=== PATIENT | female | born 1930 | race Caucasian/White ===

== ENCOUNTER 2018-01-19 10:18 | Emergency (ER) | payer MEDICARE ==
[2018-01-19 11:45] LABS: #Basophils 0.1 thou/uL (0.0-0.2); #Eosinphils 0.3 thou/uL (0.0-0.7); #Monocytes 0.9 thou/uL (0.11-0.59); #Neutrophils 4.8 thou/uL (1.40-6.50); %Basophils 0.9 % (0.0-1.0); %Eosinophils 3.2 % (0.0-10.0); %Lymphocytes 24.8 % (21.0-51.0); %Monocytes 11.3 % (0.0-10.0); %Neutrophils 59.8 % (42.0-75.0); Hemoglobin 9.1 g/dL (12.0-16.0); Mean Corpuscular HGB CONC 33.5 g/dL (32.0-36.0); Mean Corpuscular Hemoglobin 32.6 pg (27.0-31.0); Mean Corpuscular Volume 97.4 fl (81.0-99.0); Mean Platelet Volume 9.1 fL (7.4-10.4); Platelet Count 199 thou/uL (130-400); RBC Distribution Width 13.7 % (11.5-14.5); White Blood Cell (WBC) Count 8.1 thou/uL (4.8-10.8)
--- NOTE | 2018-01-19 11:48 | CT ---
CT BRAIN NONCONTRAST: DATE: 01-19-18 TIME: 10:52 a.m. HISTORY: 87-year-old female status post head trauma. COMPARISON: 03-28-17 FINDINGS: No acute calvarial fracture. No acute intraaxial or extraaxial hemorrhage. No mass effect or midline shift. Moderate dilation of lateral, third, and fourth ventricles, probably on a an ex vacuo basis du e to diffuse central parenchymal volume loss. Diffuse severe chronic ischemic white matter changes of the cerebrum. Moderate sized old right occipital infarction. Small old lacunar infarctions of left b esau ganglia, left caudate nucleus, and posterior limb of left internal capsule. No interval change o f the intracranial contents since the previous CT. There is a small old lacunar infarction in the lef t letitia. IMPRESSION: 1. No acute intracranial findings. 2. Severe chronic ischemic white matter changes and advanced brain atrophy. 3. Old moderate sized right occipital infarction in the right posterior cerebral artery territory. 4. Several small old lacunar infarctions, including left letitia and left corpus striatum. RUSS Sousa POS: [facility]
--- NOTE | 2018-01-19 11:52 | CT ---
CT CERVICAL SPINE WITH CORONAL AND SAGITTAL REFORMATIONS: HISTORY: Fall. Neck pain. Stiffness. COMPARISON: 03/28/2017 FINDINGS: Degenerative changes in the cervical spine are again seen with degenerative anterolisthesis of C4 on C5. No evidence of acute fracture or traumatic subluxation is seen. POS: [facility]
[2018-01-19 12:02] LABS: Anion Gap 12 mmol/L (10-20); BUN (Urea Nitrogen) 37 mg/dL (9.8-20.1); Calc. Creatinine Clearance 0 mL/min (70-130); Calcium 8.6 mg/dL (7.8-10.44); Carbon Dioxide 22 mmol/L (23-31); Chloride 104 mmol/L (98-107); Estimated GFR-MDRD 27; Glucose 101 mg/dL (83-110); Potassium 4.6 mmol/L (3.5-5.1); Sodium 133 mmol/L (136-145)
[2018-01-19 12:14] LABS: Troponin I 0.014 ng/mL (< 0.028)
[2018-01-19 13:58] LABS: Bilirubin Negative (Negative); Blood, Urine Negative (Negative); Clarity CLEAR (Clear); Glucose, Urine (Dipstick) Negative (Negative); Leukocyte Negative (Negative); Nitrite Negative (Negative); Protein, Urine (Dipstick) 300 mg/dL (Neg-Trace); Specific Gravity, Urine 1.009 (1.002-1.036); Urobilinogen 0.2 mg/dL (0.2-1.0); pH, Urine 7.5 (5.0-9.0)
[2018-01-19 14:01] LABS: Bacteria/HPF None Seen HPF (None Seen); Hyaline Casts/LPF 0-3 HYALINE CAST LPF (0-3 Hyaline); Pathc Cast-AUWi Flag 0.29 (0-2.49); Squamous Epithelial 0-3 HPF (0-3); WBC/HPF 0-3 HPF (0-3)
== END 2018-01-19 15:41 | disposition home or self-care (01) ==
LOC: ERS 10:18
DX: S00.03XA Contusion of scalp, initial encounter (principal); I10 Essential (primary) hypertension; E03.9 Hypothyroidism, unspecified; F32.9 Major depressive disorder, single episode, unspecified; Z87.891 Personal history of nicotine dependence; W01.198A Fall on same level from slipping, tripping and stumbling with subsequent striking against other object, initial encounter; Y93.01 Activity, walking, marching and hiking
CPT/HCPCS: 36415; 70450; 72125; 80048; 81003; 81015; 82553; 84484; 85025; 87086; 93005

== ENCOUNTER 2018-09-18 09:57 | Inpatient (IN) | payer MEDICARE, OTHER ==
[2018-09-18] MEDS ORDERED: Diltiazem 125 MG/25 ML ONE (10:16)
[2018-09-18] MEDS ORDERED: Metoprolol Tartrate 5 MG/5 ML VIAL ONE (11:03)
[2018-09-18 11:09] LABS: Hemoglobin 6.2 g/dL (12.0-16.0); Mean Corpuscular HGB CONC 30.6 g/dL (32.0-36.0); Mean Corpuscular Volume 98.1 fL (78.0-98.0); Mean Platelet Volume 8.5 fL (7.4-10.4); Platelet Count 370 thou/uL (130-400); RBC Distribution Width 16.2 % (11.5-14.5); Red Blood Cell (RBC) Count 2.06 mill/uL (4.20-5.40)
[2018-09-18 11:10] LABS: Bilirubin Negative (Negative); Blood, Urine Small (Negative); Glucose, Urine (Dipstick) Negative (Negative); Leukocyte Negative (Negative); Nitrite Negative (Negative); Protein, Urine (Dipstick) 100 mg/dL (Neg-Trace); Urobilinogen 0.2 mg/dL (0.2-1.0); pH, Urine 5.5 (5.0-9.0)
[2018-09-18 11:12] LABS: Clarity Hazy (Clear)
[2018-09-18 11:13] LABS: Specific Gravity, Urine 1.015 (1.002-1.036)
[2018-09-18] MEDS ORDERED: Diltiazem HCl 125 MG, Admixture Fee 1 EACH in Sodium Chloride 0.9% 100 ML IVPB SCH (11:15)
[2018-09-18 11:19] LABS: ALT (SGPT) 81 U/L (8-55); AST (SGOT) 91 U/L (5-34); Albumin 3.1 g/dL (3.4-4.8); Alkaline Phosphatase 134 U/L (40-150); Anion Gap 17 mmol/L (10-20); BUN (Urea Nitrogen) 80 mg/dL (9.8-20.1); Bilirubin, Total 0.4 mg/dL (0.2-1.2); CK (CPK) 379 U/L (29-168); Calc. Creatinine Clearance 0 mL/min (70-130); Calcium 8.8 mg/dL (7.8-10.44); Carbon Dioxide 18 mmol/L (23-31); Chloride 123 mmol/L (98-107); Estimated GFR-MDRD 13; Globulin 3.7 g/dL (2.4-3.5); Glucose 133 mg/dL (83-110); Protein, Total 6.8 g/dL (6.0-8.3); Sodium 154 mmol/L (136-145)
[2018-09-18 11:22] LABS: Bacteria/HPF None Seen HPF (None Seen); Crystals/HPF 1+ AMORPH URATES HPF (Negative); Hyaline Casts/LPF NONE SEEN LPF (0-3 Hyaline); RBC/HPF 0-3 HPF (0-3); Squamous Epithelial 0-3 HPF (0-3); WBC/HPF 0-3 HPF (0-3)
[2018-09-18 11:40] LABS: CKMB 5.3 ng/mL (0-6.6)
[2018-09-18 11:41] LABS: Band 12 % (5-11); Hypochromia SLIGHT = 6-15 cells (100X) (0-5/hpf); Lymphocytes 5 % (21-51); MDiff Complete? YES; Metamyelocyte 3 % (0-0); Microcytosis SLIGHT = 6-15 cells (100X) (0-5/hpf); Monocytes 7 % (0-10); Myelocyte 3 % (0-0); Neutrophil 70 % (42-75); Nucleated RBC 9 % (0); Platelet Morphology Comment Appears Adequate; Polychromasia MODERATE = 3-4 cells (100X) (0-2/hpf); Small Platelets SLIGHT; White Blood Cell (WBC) Count 23.6 thou/uL (4.8-10.8)
--- NOTE | 2018-09-18 12:40 | RAD ---
CHEST 1 VIEW: HISTORY: Altered mental status. COMPARISON: 10/21/2016. FINDINGS: Cardiac silhouette is magnified and upper limits of normal in size. Pulmonary vasculature is slightl y engorged with widespread reticulonodular interstitial prominence and mild patchy bibasilar infiltra maile. A small amount of right pleural fluid including the minor fissure. No evidence of pneumothorax . structural layout worker leads overlie the chest. IMPRESSION: Mild pulmonary vascular congestion and right pleural fluid. POS: [facility]
[2018-09-18 13:33] LABS: Reticulocyte Count 6.9 % (0.5-1.5)
[2018-09-18] MEDS ORDERED: Ondansetron ODT 4 MG TAB SL PRN (17:22)
[2018-09-18] MEDS ORDERED: Ondansetron PF 4 MG/2 ML Vial IVP PRN ×2 (17:22→17:50)
[2018-09-18] MEDS ORDERED: Acetaminophen 325 MG TAB PO PRN (17:22)
[2018-09-18] MEDS ORDERED: Sodium Chloride 0.9% 1,000 ML IV SCH (17:50)
[2018-09-18] MEDS ORDERED: Ondansetron ODT 4 MG TAB PO PRN (17:50)
[2018-09-18] MEDS ORDERED: hydrALAZINE 20 MG/ML VIAL SLOW IVP PRN (17:50)
[2018-09-18] MEDS: Diltiazem 125 MG in Sodium Chloride 0.9% 100 ML IVPB SCH (20:58)
[2018-09-18] MEDS: Metoprolol Tartrate 50 MG TAB PO SCH (20:58)
[2018-09-18] MEDS: Pantoprazole 40 MG VIAL IVP SCH (20:59)
--- NOTE | 2018-09-18 21:02 | HP ---
PRIMARY CARE PROVIDER: Dr. Jimenez Espino. CHIEF COMPLAINT: General weakness and lethargy. HISTORY OF PRESENT ILLNESS: This is an 88-year-old female, who presents to [facility] Emergency Department and transferred from [facility] after apparently being noted lethargic and unresponsive by [facility] staff. The patient apparently was found in her wheelchair minimally responsive to the nursing staff, however, had been noted generally weak over the last 5 to 7 days. The history was obtained after discussions with the emergency room attending physician as well as review of electronic medical records and discussions with the patient's medical power of business consultant and family members. The patient has been a current resident of [facility] over the last 6 months after previously residing at [facility]. The patient needed more supervised medical care due to worsening Alzheimer's dementia and decreased mobility. The patient apparently does not walk and uses a wheelchair for mobilization and needs 100% assistance. The patient was transferred to the emergency room, undergoing initial evaluation in the emergency room with screening metabolic survey showing evidence of hypernatremia and acute kidney acute kidney injury, elevated troponin I, and severe anemia with a hemoglobin of 6.2. The patient was typed and crossed for 2 units of packed red blood cells and given IV fluids. The patient was also noted in atrial fibrillation with rapid ventricular response with heart rates in the 130s. The patient was treated initially with diltiazem and atenolol IV push with minimal response. The patient with a known history of chronic atrial fibrillation with variable rate control on chronic metoprolol and diltiazem. The patient was continued on diltiazem infusion and transferred to the Intermediate Care Unit for further evaluation. PAST MEDICAL HISTORY: 1. Chronic atrial fibrillation with variable rate. No anticoagulation. 2. Alzheimer's dementia, advanced. 3. Severe deconditioning. 4. Diastolic congestive heart failure. 5. Hypothyroidism. 6. Hypertension. 7. Depression. 8. Osteoarthritis. 9. History of CVA. 10. Chronic kidney disease stage 3. 11. History of thrombocythemia. 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 CURRENT MEDICATIONS: 1. Xanax 0.5 mg p.o. t.i.d. p.r.n. 2. Agrylin 0.5 mg p.o. daily. 3. Enteric-coated aspirin 81 mg p.o. daily. 4. Levothyroxine 112 mcg p.o. daily. 5. Metoprolol tartrate 50 mg p.o. b.i.d. 6. Cardizem CD 240 mg p.o. daily. 7. Lasix 40 mg p.o. b.i.d. 8. Protonix 40 mg p.o. daily. ALLERGIES: NO KNOWN DRUG ALLERGIES. FAMILY HISTORY: No inheritable disease per family report. SOCIAL HISTORY: The patient is and resides at [facility] x6 months. No current alcohol, tobacco, or illicit drug use. Formally worked as a nurse. REVIEW OF SYSTEMS: Unobtainable due to patient's advanced dementia. PHYSICAL EXAMINATION: VITAL SIGNS: Currently, blood pressure 136/93, pulse 108, respiratory rate 16, temperature 97.8 degrees Fahrenheit, O2 saturation 96% on room air. GENERAL APPEARANCE: This is an 88-year-old female. Alert and responds to name with 1- to 2-word responses, in no acute distress. HEENT: Pupils are equal, round, reactive to light and accommodation. Extraocular muscles are intact. No scleral icterus. No conjunctival injection. Conjunctiva are pale. Nares patent. OP is clear. Oral mucosa dry appearing. NECK: Supple. No cervical adenopathy. No thyromegaly. No carotid bruits. No JVD appreciated. Cervical spine with full active and passive range of motion. No meningeal signs appreciated. CHEST: Lungs are clear to auscultation bilaterally. CARDIOVASCULAR: S1 and S2 with tachycardia. Irregular rate and rhythm noted. ABDOMEN: Rounded, soft, nontender, and nondistended. Bowel sounds are positive in all 4 quadrants. There is no hepatosplenomegaly. No abdominal bruits. No rebound or guarding appreciated. RECTAL: From ER physician report showed normal tone with dark stool in the vault. Guaiac negative x1. EXTREMITIES: Warm and dry with fair turgor. No clubbing, cyanosis, or asymmetric edema appreciated. Pulses palpable distally at the dorsalis pedis, posterior tibial, and popliteal arteries bilaterally. Capillary refill less than 2 seconds. NEUROLOGIC: Cranial nerves 2 through 12 are grossly intact. The patient minimally verbal, responds to name with one-word response, frail, not observed ambulatory during this exam. Minimally moves extremities. PERTINENT LAB AND X-RAY FINDINGS: Sodium 154, potassium 4.0, chloride 123, CO2 of 18, BUN 80, creatinine 3.33, estimated GFR 13, glucose 133. Lactic acid level 1.2, calcium 8.8, AST 91, ALT of 81, alkaline phosphatase 134, total CK 379, troponin I range between 0.061, 0.066. BNP 1374; previously noted 144, 10/21/2016. CBC showed a white blood cell count of 23.6, hemoglobin 6.2, hematocrit 20, MCV 98, platelet count 370 with 70% neutrophils, 12% bands. Reticulocyte count 6.9. Urinalysis negative. Stool Hemoccult negative x1; 09/18/2018. Portable chest x-ray dated 09/18/2018 showed mild pulmonary vascular prominence. EKG dated 09/18/2018 by my interpretation shows atrial fibrillation with rapid ventricular rate in the 120s. Normal R-wave progression noted in the precordial leads. Normal axis. No acute ST-T wave changes noted. ASSESSMENT AND PLAN: 1. Atrial fibrillation with rapid ventricular response. We will admit to the Intermediate Care Unit. We will continue Cardizem infusion at 10 mg/hour. Repeat Cardizem bolus 10 mg IV x1. Consider additional digoxin if rate is not controlled. Resume metoprolol 50 mg b.i.d. Continue IV fluids with normal saline at 75 mL/hr. 2. Gastrointestinal bleed. Suspected upper source given melena. We will continue Protonix 40 mg IV q.12 hours. Continued transfusion of 2nd unit of packed red blood cells. Serial H and H monitoring. Avoid anticoagulation and aspirin. Consult GI Service for further evaluation and recommendations. 3. Acute blood loss anemia. Type and cross for 2 units of packed red blood cells. Serial H and H monitoring as stated previously. Repeat CBC in the a.m. 4. Acute kidney injury. Suspect multifactorial given volume depletion and dehydration. We will continue IV fluids with normal saline at 75 mL/hr. Avoid nephrotoxic agents and limit contrast exposure. 5. Hypernatremia. Suspect acute in conjunction with dehydration. Continue IV fluids as stated previously and repeat sodium level in the a.m. 6. Severe deconditioning. We will obtain PT evaluation for general functional assessment. General fall risk. 7. Alzheimer's dementia, advanced. We will continue general supportive management. Family to monitor the patient one-on-one. 8. Prophylaxis. SCDs while in bed. Protonix 40 mg IV q.12 hours. 9. Code status. Do not attempt resuscitation. Confirmed with family and son, who is medical power of business consultant. Job ID: [id number]
[2018-09-18 23:10] LABS: Hemoglobin 10.1 g/dL (12.0-16.0)
[2018-09-19 05:01] LABS: Band 27 % (5-11); Hemoglobin 9.5 g/dL (12.0-16.0); Lymphocytes 8 % (21-51); MDiff Complete? YES; Mean Corpuscular HGB CONC 32.4 g/dL (32.0-36.0); Mean Corpuscular Hemoglobin 31.9 pg (27.0-31.0); Mean Corpuscular Volume 98.4 fL (78.0-98.0); Mean Platelet Volume 8.8 fL (7.4-10.4); Metamyelocyte 9 % (0-0); Monocytes 4 % (0-10); Neutrophil 51 % (42-75); Nucleated RBC 11 % (0); Platelet Count 299 thou/uL (130-400); Platelet Morphology Comment Appears Adequate; Polychromasia SLIGHT = 2-3 cells (100X) (0-2/hpf); RBC Distribution Width 16.3 % (11.5-14.5); Reactive Lymphocytes 1 % (0-10); Red Blood Cell (RBC) Count 2.99 mill/uL (4.20-5.40); White Blood Cell (WBC) Count 21.5 thou/uL (4.8-10.8)
[2018-09-19 05:15] LABS: Anion Gap 17 mmol/L (10-20); BUN (Urea Nitrogen) 79 mg/dL (9.8-20.1); Calc. Creatinine Clearance 12 mL/min (70-130); Calcium 8.8 mg/dL (7.8-10.44); Carbon Dioxide 15 mmol/L (23-31); Estimated GFR-MDRD 14; Glucose 107 mg/dL (83-110); Iron 35 ug/dL (50-170); Iron Binding Capacity, Total 278 mcg/dL (265-497); Potassium 4.2 mmol/L (3.5-5.1); Sodium 155 mmol/L (136-145)
[2018-09-19 05:28] LABS: Chloride 127 mmol/L (98-107)
[2018-09-19 05:32] LABS: Ferritin 54.04 ng/mL (10-291); Thyroid Stimulating Hormone 7.4863 uIU/mL (0.35-4.94)
[2018-09-19] MEDS ORDERED: Lactated Ringer's 1,000 ML IV SCH (06:00)
[2018-09-19] MEDS ORDERED: Sodium Chloride 0.9% 1,000 ML IV SCH (06:00)
[2018-09-19] MEDS: Pantoprazole 40 MG VIAL IVP SCH ×2 (10:09→21:27)
[2018-09-19] MEDS: Levothyroxine Sodium 112 MCG TAB PO SCH (10:10)
[2018-09-19] MEDS: Metoprolol Tartrate 50 MG TAB PO SCH ×2 (10:10→20:32)
--- NOTE | 2018-09-19 12:12 | CON ---
DATE OF CONSULTATION: 09/19/2018 REASON FOR CONSULTATION: Atrial fibrillation with RVR. PRIMARY PRIVATE TUTORS AND TEACHERS: Saumya Rangel MD HISTORY OF PRESENT ILLNESS: Ms. Quigley is an 88-year-old white female, who comes to the hospital for altered mentation. She was found to have a hemoglobin of 6.2 and given packed red blood cells up to the 9s now. She has a history of melena as well. Concern for upper GI bleed. During her initial evaluation, she was found to be in atrial fibrillation with RVR, heart rate in the 130s. She was started on diltiazem drip. Heart rate down to the low 100s upper 90s. She remains confused. She is lying on her bed, unable to wake her up easily, however, really cannot answer most of my questions. PAST MEDICAL HISTORY: 1. Paroxysmal atrial fibrillation. 2. Alzheimer dementia, advanced. 3. Severe deconditioning. 4. Diastolic heart failure. 5. Hypothyroidism. 6. Hypertension. 7. Depression. 8. Osteoarthritis. 9. CVA in the past. 10. Chronic kidney disease, stage 3. 11. Thrombocytopenia. PAST SURGICAL HISTORY: Sigmoid colectomy secondary to fecal mass. OUTPATIENT MEDICATIONS: Include: 1. Xanax p.r.n. 2. Agrylin 0.5 a day. 3. Aspirin 81 a day. 4. Levothyroxine 112 mcg a day. 5. Metoprolol tartrate 50 mg b.i.d. 6. Cardizem CD 240 mg a day. 7. Lasix 40 mg b.i.d. 8. Protonix 40 mg a day. ALLERGIES: NO KNOWN DRUG ALLERGIES. FAMILY HISTORY: No early coronary artery disease. SOCIAL HISTORY: Resides at [facility] for the last 6 months. No alcohol, tobacco, or drugs. Former nurse. REVIEW OF SYSTEMS: Unobtainable as the patient has advanced dementia and cannot give me any information. PHYSICAL EXAMINATION: VITAL SIGNS: Temperature 98.6, pulse 105, respiratory rate 22, saturating 96% on 3 L nasal cannula, and blood pressure 147/99. GENERAL: Sleeping, but easily arousable. Alert to person only. HEENT: Normocephalic and atraumatic. NECK: Supple. LUNGS: Clear. CARDIOVASCULAR: S1 and S2. No S3 or S4. No murmurs. ABDOMEN: Soft. Positive bowel sounds. EXTREMITIES: No edema. SKIN: Warm and dry. LABORATORY DATA: Laboratory work was reviewed. CBC on admission, hemoglobin was 10.1, down to 6.2, just a few hours later up to 9.5 after 2 units of blood given overnight. White count was 23.6. Chemistry was reviewed. Creatinine is 3.2 with BUN of 79, GFR 14, TSH is high at 7.4, albumin of 3.1. BNP was 1373 and troponin is in the indeterminate range. UA was unremarkable. ASSESSMENT AND PLAN: 1. Atrial fibrillation with rapid ventricular response: She has paroxysmal atrial fibrillation, currently in the with rapid ventricular response, likely related to severe anemia. I agree with continued Cardizem drip if her blood pressure starts to begin to be an issue. We will have to stop the Cardizem drip and let her tachycardia run as she may need this tachycardia given her anemia. 2. Anemia: May be GI losses. Per primary team. 3. No anticoagulation contraindicated at this time. Given her acute anemia, which is from an unknown source. 4. We will follow. Job ID: [id number]
--- NOTE | 2018-09-19 15:00 | CON ---
DATE OF CONSULTATION: 09/19/2018 The following encompassed 50 minutes of time of that, greater than 50% was spent with the patient and/or in the patient's unit in the hospital. HISTORY OF THE PRESENT ILLNESS: This is a routine [facility] consultation for critical care. The patient is an 88-year-old female who presented last night with weakness and lethargy. She was found to be severely anemic. This is presumed secondary to gastrointestinal loss. She is a very poor historian and cannot give me much in the way history at this time; therefore, what I have is obtained from speaking with nursing staff and from reviewing records in the chart. PAST MEDICAL HISTORY: 1. Chronic atrial fibrillation. 2. Alzheimer disease. 3. Deconditioning. 4. Diastolic congestive heart failure. 5. Hypothyroidism. 6. Hypertension. 7. Depression. 8. Osteoarthritis. 9. Stroke. 10. Chronic kidney disease stage 3. 11. Thrombocytopenia. PAST SURGICAL HISTORY: Cecal mass consistent with tubulovillous adenoma. MEDICATIONS: Prior to admission; 1. Xanax. 2. Agrylin. 3. Aspirin. 4. Levothyroxine. 5. Metoprolol. 6. Cardizem. 7. Lasix. 8. Protonix. ALLERGIES: NONE. SOCIAL HISTORY: Nonsmoker, nondrinker. [facility] a [facility]. REVIEW OF SYSTEMS: Unobtainable secondary to the patient's Alzheimer disease. PHYSICAL EXAMINATION: VITAL SIGNS: Temperature 98.6, pulse 105, respirations 22, O2 saturation 96% on 3 L, and blood pressure 147/99. GENERAL: She is lying in bed peacefully and has no distress. HEENT: Unremarkable. NECK: No adenopathy or JVD. LUNGS: Clear. CARDIAC: S1, S2 regular. ABDOMEN: Soft, nontender. EXTREMITIES: No edema. LABORATORY DATA: White blood cell count 21.5, hematocrit 29.4, and platelet count 299. Sodium 155, potassium 4.2, chloride 127, CO2 of 15, BUN 79, creatinine 3.2, glucose 107. TSH 7.4. Chest x-ray demonstrates chronic interstitial changes bilaterally, particularly on the right. There appears to be a small amount of pleural fluid in the right horizontal fissure. ASSESSMENT: 1. Atrial fibrillation with rapid ventricular response. 2. Suspected gastrointestinal bleed with severe blood loss anemia. 3. Acute kidney injury. 4. Hypernatremia. 5. Severe deconditioning. PLAN: The patient is currently being treated conservatively with transfusion, IV fluids, and rate control from her atrial fibrillation. I agree with current plan and have nothing further to add to excellent care she is receiving. Job ID: [id number]
--- NOTE | 2018-09-19 15:20 | PDOC.PN ---
- Subjective Encounter Start Date: 09/19/18 Encounter Start Time: 15:05 Subjective: f/u for AMS, GI bleed, A-fib RVR s/p 2u PRBC's and rate improved -: on Cardizem gtt. - Objective Resuscitation Status - Order Detail: 09/18/18 17:42 Resuscitation Status Routine Resuscitation Status: DNAR: NO Resuscitation Discussed with: Family and son Vital Signs & Weight: Vital Signs (12 hours) Temp Pulse Resp BP Pulse Ox 09/19/18 15:00 98.0 F 117 H 19 148/87 H 95 09/19/18 10:46 98.6 F 105 H 22 H 147/99 H 96 09/19/18 08:00 98 09/19/18 07:00 98.4 F 124 H 19 172/99 H 95 09/19/18 03:45 99.0 F 115 H 18 137/110 H 93 L Weight Weight 135 lb 11.2 oz I&O: 09/18/18 09/19/18 09/20/18 06:59 06:59 06:59 Intake Total 1139.7 Balance 1139.7 Result Diagrams: 09/19/18 04:35 09/19/18 04:35 Additional Labs: Microbiology 09/19/18 08:50 Stool Stool Occult Blood (TJ) - Final 09/18/18 11:20 Stool - Pending Stool Occult Blood (TJ) - Final 09/18/18 12:30 Venous blood - Right Hand Blood Culture - Preliminary Specimen has been received and culture in progress. No Growth to date. 09/18/18 12:30 Central Line - Left external jugular vein Blood Culture - Preliminary Specimen has been received and culture in progress. No Growth to date. Laboratory Tests 09/18/18 09/18/18 09/18/18 12:14 23:02 Unknown WBC Hgb 10.1 L Band Neuts % (Manual) Retic Count 6.9 H Sodium 154 H Chloride 123 H BUN 80 H Creatinine 3.33 H Lactic Acid Iron TIBC Ferritin TSH 3rd Generation 09/18/18 09/18/18 09/19/18 Unknown Unknown 04:35 WBC 23.6 H Hgb 6.2 L Band Neuts % (Manual) 12 H Retic Count Sodium Chloride BUN Creatinine Lactic Acid 1.2 Iron 35 L TIBC 278 Ferritin TSH 3rd Generation 09/19/18 09/19/18 04:35 04:35 WBC Hgb Band Neuts % (Manual) 27 H Retic Count Sodium Chloride BUN Creatinine Lactic Acid Iron TIBC Ferritin 54.04 TSH 3rd Generation 7.4863 H EKG Reviewed by me: Yes (Tele - A-fib in low 100's) Phys Exam - Physical Examination Constitutional: NAD responds in 1-2 word responses HEENT: PERRLA, sclera anicteric, oral pharynx no lesions Neck: no nodes, no JVD, supple, full ROM diminished in bases Respiratory: no wheezing, no rales, no rhonchi S1, S2 Cardiovascular: no significant murmur, no rub, irregular Gastrointestinal: soft, non-tender, no distention, positive bowel sounds Musculoskeletal: no edema, pulses present Neurological: normal sensation, moves all 4 limbs Skin: normal turgor, cap refill <2 seconds Dx/Plan (1) Atrial fibrillation with RVR Code(s): I48.91 - UNSPECIFIED ATRIAL FIBRILLATION Status: Acute Comment: Continue rate-control strategy, titrate Cardizem to clinical response, no anticoagulation due to GI bleed (2) GI bleed Code(s): K92.2 - GASTROINTESTINAL HEMORRHAGE, UNSPECIFIED Status: Suspected Comment: Suspected GI source, s/p 2u PRBC's, serial H/H monitoring, GI consult (3) Acute blood loss anemia Code(s): D62 - ACUTE POSTHEMORRHAGIC ANEMIA Status: Acute Comment: See above , serial CBC (4) RONEL (acute kidney injury) Code(s): N17.9 - ACUTE KIDNEY FAILURE, UNSPECIFIED Status: Acute Comment: Avoid nephrotoxic meds and limit contrast exposure, serial creatinine (5) Acute hypernatremia Code(s): E87.0 - HYPEROSMOLALITY AND HYPERNATREMIA Status: Acute Comment: slow improvement, change IVF's D5 1/2 NS @ 75ml/h, serial Na+ (6) Physical deconditioning Code(s): R53.81 - OTHER MALAISE Status: Chronic Comment: PT for mobilization (7) Alzheimer's dementia Code(s): G30.9 - ALZHEIMER'S DISEASE, UNSPECIFIED; F02.80 - DEMENTIA IN OTH DISEASES CLASSD ELSWHR W/O BEHAVRL DISTURB Status: Chronic Comment: Advanced dementia, will return to [facility] upon d/c (8) Neutrophilic leukocytosis Code(s): D72.9 - DISORDER OF WHITE BLOOD CELLS, UNSPECIFIED Status: Acute Comment: Etiology unclear, suspect stress demargination however will monitor for infectious etiology, no current infectious etiology identified, hold abx - Plan PT/OT, social media marketing manager, DVT proph w/SCDs Continue supportive mgmt -: Continue Cardizem gtt -: Change IVF D5 1/2 NS@ 75ml/h -: GI consult pending -: AM lab: CMP, CBC, FT4 * .
[2018-09-19] MEDS: ALPRAZolam 0.5 MG TAB PO PRN (20:37)
--- NOTE | 2018-09-19 21:03 | CON ---
DATE OF CONSULTATION: 09/19/2018 TYPE OF CONSULTATION: Gastroenterology. CHIEF COMPLAINT: Weakness and lethargy. HISTORY OF PRESENT ILLNESS: Ms. Quigley is an 88-year-old woman, who was transferred from the assisted due to weakness. She was found to be minimally responsive and has had progressively worsening Alzheimer's dementia over the last year. She has had no nausea or vomiting reported. No diarrhea, constipation, or blood in the stools known. She has a history of atrial fibrillation and was in rapid ventricular response when she presented; however, her heart rate is being controlled with diltiazem and atenolol. Currently, she is oriented to her name and she denies any abdominal pain. GI was consulted due to acute on chronic anemia with concern for possible GI blood loss. PAST MEDICAL HISTORY: 1. Atrial fibrillation. 2. Alzheimer's dementia. 3. Diastolic heart failure. 4. Hypothyroidism. 5. Hypertension. 6. Osteoarthritis. 7. Stroke. 8. Depression. 9. Chronic kidney disease. PAST SURGICAL HISTORY: She had a sigmoid segmental colon resection for a tubulovillous adenoma. That was performed in 2011. Followup colonoscopy in [address] Dejesus was negative. FAMILY HISTORY: Negative for GI malignancy. SOCIAL HISTORY: No alcohol, tobacco, or drugs. ALLERGIES: NO KNOWN DRUG ALLERGIES. MEDICATIONS: Prior to admission; 1. Xanax. 2. Agrylin. 3. Enteric-coated aspirin. 4. Levothyroxine. 5. Metoprolol. 6. Cardizem. 7. Lasix. 8. Protonix. REVIEW OF SYSTEMS: Limited based on her dementia. She again denies pain anywhere. PHYSICAL EXAMINATION: VITAL SIGNS: Pulse 117, temperature 98.0, blood pressure 148/87. GENERAL: She is in no acute distress. She is oriented to her name. She is awake and alert. LUNGS: Clear to auscultation bilaterally. HEART: Tachycardic, S1 and S2. ABDOMEN: Soft, nontender, and nondistended. Bowel sounds are present. EXTREMITIES: No lower extremity edema. LABORATORY DATA: Sodium 155, potassium 4.2, chloride 127, CO2 15, BUN 79, creatinine 3.2. Iron 35, TIBC 278, ferritin 54. BNP 1373. Albumin 3.1. IMPRESSION: 1. Severe anemia, requiring transfusion. She has received 2 units yesterday. Her hemoglobin improved from 6.2 to 9.5 after transfusion. She has no overt bleeding known. She has 2 hemoccult stools that were negative. Her anemia is, I suspect, more consistent with chronic kidney disease or chronic disease given the low TIBC and her creatinine is up to 3.2 with BUN of 79. 2. Alzheimer's dementia. 3. Diastolic congestive heart failure with elevated BNP. RECOMMENDATIONS: 1. We will follow trend of her hemoglobin after transfusion. If she shows signs of overt bleeding or if ultimately another source could not be identified for the anemia, then endoscopy can be performed. We will monitor her clinically for now. 2. She has been on proton pump inhibitor and this can be continued. Job ID: [id number]
[2018-09-19] MEDS: Dextrose 5 %-0.45 % NaCl 1,000 ML IV SCH (21:27)
[2018-09-19] MEDS: Diltiazem 125 MG in Sodium Chloride 0.9% 100 ML IVPB SCH (21:27)
[2018-09-20 06:10] LABS: Band 1 % (5-11); Hypochromia SLIGHT = 6-15 cells (100X) (0-5/hpf); Lymphocytes 3 % (21-51); MDiff Complete? YES; Mean Corpuscular HGB CONC 32.1 g/dL (32.0-36.0); Mean Corpuscular Hemoglobin 30.9 pg (27.0-31.0); Mean Platelet Volume 9.2 fL (7.4-10.4); Monocytes 1 % (0-10); Neutrophil 95 % (42-75); Nucleated RBC 4 % (0); Platelet Count 268 thou/uL (130-400); Platelet Morphology Comment Appears Adequate; Red Blood Cell (RBC) Count 2.92 mill/uL (4.20-5.40); White Blood Cell (WBC) Count 14.7 thou/uL (4.8-10.8)
[2018-09-20 06:15] LABS: ALT (SGPT) 119 U/L (8-55); AST (SGOT) 124 U/L (5-34); Alkaline Phosphatase 157 U/L (40-150); Anion Gap 14 mmol/L (10-20); BUN (Urea Nitrogen) 71 mg/dL (9.8-20.1); Bilirubin, Total 0.6 mg/dL (0.2-1.2); Calc. Creatinine Clearance 13 mL/min (70-130); Calcium 8.7 mg/dL (7.8-10.44); Carbon Dioxide 18 mmol/L (23-31); Estimated GFR-MDRD 15; Globulin 3.5 g/dL (2.4-3.5); Glucose 141 mg/dL (83-110); Potassium 3.7 mmol/L (3.5-5.1); Protein, Total 6.5 g/dL (6.0-8.3); Sodium 156 mmol/L (136-145)
[2018-09-20 06:20] LABS: Chloride 128 mmol/L (98-107)
[2018-09-20] MEDS: Levothyroxine Sodium 112 MCG TAB PO SCH (07:30)
[2018-09-20] MEDS: Dextrose 5 %-0.45 % NaCl 1,000 ML IV SCH (08:51)
[2018-09-20] MEDS: Pantoprazole 40 MG VIAL IVP SCH (08:52)
[2018-09-20] MEDS: Metoprolol Tartrate 50 MG TAB PO SCH ×2 (08:52→20:24)
[2018-09-20] MEDS: Diltiazem 125 MG in Sodium Chloride 0.9% 100 ML IVPB SCH (11:00)
--- NOTE | 2018-09-20 11:22 | PRG ---
DATE OF SERVICE: SUBJECTIVE: Ms. Quigley has no complaints. No abdominal pain. OBJECTIVE: VITAL SIGNS: Temperature 97.2, pulse 100, blood pressure 139/86, oxygen saturations 92% on room air. GENERAL: She is awake and alert. LUNGS: Clear to auscultation bilaterally. HEART: Regular rate and rhythm. ABDOMEN: Soft, nontender, nondistended. Bowel sounds are present. EXTREMITIES: No lower extremity edema. LABS: White blood cell count 14.7, hemoglobin 9.0, platelets 268. Creatinine is improved to 2.99. Bilirubin 0.6, AST 124, ALT 119, alk phos 157. IMPRESSION: 1. Anemia. Her hemoglobin improved from 6.2 to 9.0 after 2 units transfusion. She has been Hemoccult negative. Rectal exam today reveals dark carpenter stool consistent with her iron supplementation. There is no overt GI bleeding. Anemia is likely multifactorial without obvious signs of overt GI bleeding. 2. Alzheimer dementia. 3. Acute renal failure. RECOMMENDATIONS: 1. She can change to once daily pantoprazole. 2. We will follow the trend of hemoglobin. 3. We will not plan endoscopy at this point. I will sign off for now. Please call if GI can be of assistance. Job ID: [id number]
--- NOTE | 2018-09-20 11:31 | PDOC.CTH ---
Cardiology Progress Note - Subjective No new issues. - Objective Vital Signs Temp Pulse Resp BP Pulse Ox 09/20/18 10:56 97.9 F 85 16 133/90 98 09/20/18 07:45 92 L 09/20/18 07:24 97.2 F L 100 18 139/86 92 L 09/20/18 03:55 97.8 F 89 18 137/80 93 L 09/20/18 00:00 98.0 F 87 16 131/71 97 Weight 139 lb 4.8 oz 09/19/18 09/20/18 09/21/18 06:59 06:59 06:59 Intake Total 1139.7 1920 Output Total 5 Balance 1139.7 1915 - Physical Examination General/Neuro: NAD Neck: no JVD present Lungs: unlabored respirations Heart: other: (Irreg) Abdomen: NT/ND Extremities: other: (no edema) - Telemetry Telemetry Rhythm: Afib HR 80's - Labs Result Diagrams: 09/20/18 05:37 09/20/18 05:37 Troponin/CKMB CK-MB (CK-2) 5.3 ng/mL (0-6.6) 09/18/18 Unknown Troponin I 0.061 ng/mL (< 0.028) H 09/18/18 Unknown - Assessment/Plan 1. Afib now rate controlled. 2. Anemia, multifactorial 3. Dementia. 4. RONEL on CKD, improving. 5. Abnormal LFT's. 6. Hyperchloremia PLAN; - Continue to hold anticoagulation due to anemia. Probably will only be able to get aspirin for stroke prophylaxis. - Rate controlled on current meds. - Will switch diltiazem to PO.
[2018-09-20] MEDS: Dextrose 5% in Water 1,000 ML IV SCH (12:21)
--- NOTE | 2018-09-20 12:30 | PRG ---
DATE OF SERVICE: 09/20/2018 SUBJECTIVE: An 88-year-old female, who is a DNR, presented to the hospital with mental status change. She has known history of dementia. She is staying at [facility] here locally. Pathology found to have anemia and severe electrolyte imbalance. Her creatinine is 2.9, BUN is 71, sodium 128, potassium 1.5. Liver function elevated. AST is 124, ALT is 119. White count 14,000, H and H 9 and 28. She is clearly encephalopathic, unable to give any history. OBJECTIVE: VITAL SIGNS: Saturations are 90% on room air, respirations 16, temperature 98.7, blood pressure 133/90. CHEST: Decreased breath sounds without any wheezing. CARDIAC: Normal S1 and S2. No gallops. X-ray shows nonspecific bilateral atelectatic changes. IMPRESSION: 1. GI bleed. 2. Electrolyte imbalance. 3. Encephalopathy. 4. Renal failure. I agree with comfort care. Slow hydration. We will follow. Job ID: [id number]
--- NOTE | 2018-09-20 14:51 | PDOC.PN ---
- Subjective Encounter Start Date: 09/20/18 Encounter Start Time: 14:40 Subjective: f/u for GI bleed, A-fib RVR on Cardizem gtt now d/c'd due to pauses. -: Remains confused, weak. Minimal po intake. - Objective Resuscitation Status - Order Detail: 09/18/18 17:42 Resuscitation Status Routine Resuscitation Status: DNAR: NO Resuscitation Discussed with: Family and son PATRICIA Reviewed: Yes Vital Signs & Weight: Vital Signs (12 hours) Temp Pulse Resp BP Pulse Ox 09/20/18 10:56 97.9 F 85 16 133/90 98 09/20/18 07:45 92 L 09/20/18 07:24 97.2 F L 100 18 139/86 92 L 09/20/18 03:55 97.8 F 89 18 137/80 93 L Weight Weight 139 lb 4.8 oz I&O: 09/19/18 09/20/18 09/21/18 06:59 06:59 06:59 Intake Total 1139.7 1920 Output Total 5 Balance 1139.7 1915 Result Diagrams: 09/20/18 05:37 09/20/18 05:37 Additional Labs: Microbiology 09/19/18 08:50 Stool Stool Occult Blood (TJ) - Final 09/18/18 11:20 Stool - Pending Stool Occult Blood (TJ) - Final 09/18/18 12:30 Venous blood - Right Hand Blood Culture - Preliminary Specimen has been received and culture in progress. No Growth to date. 09/18/18 12:30 Central Line - Left external jugular vein Blood Culture - Preliminary Specimen has been received and culture in progress. No Growth to date. Laboratory Tests 09/18/18 09/18/18 09/18/18 12:14 23:02 Unknown WBC Hgb 10.1 L Neutrophils % (Manual) Band Neuts % (Manual) Retic Count 6.9 H Sodium 154 H Chloride 123 H BUN 80 H Creatinine 3.33 H Lactic Acid Iron TIBC Ferritin AST ALT Alkaline Phosphatase TSH 3rd Generation 09/18/18 09/18/18 09/19/18 Unknown Unknown 04:35 WBC 23.6 H Hgb 6.2 L Neutrophils % (Manual) Band Neuts % (Manual) 12 H Retic Count Sodium 155 H Chloride 127 H* BUN 79 H Creatinine 3.20 H Lactic Acid 1.2 Iron 35 L TIBC 278 Ferritin AST ALT Alkaline Phosphatase TSH 3rd Generation 09/19/18 09/19/18 09/20/18 04:35 04:35 05:37 WBC 21.5 H Hgb 9.5 L Neutrophils % (Manual) 51 Band Neuts % (Manual) 27 H Retic Count Sodium Chloride BUN Creatinine Lactic Acid Iron TIBC Ferritin 54.04 AST 124 H ALT 119 H Alkaline Phosphatase 157 H TSH 3rd Generation 7.4863 H 09/20/18 05:37 WBC Hgb Neutrophils % (Manual) 95 H Band Neuts % (Manual) 1 L Retic Count Sodium Chloride BUN Creatinine Lactic Acid Iron TIBC Ferritin AST ALT Alkaline Phosphatase TSH 3rd Generation EKG Reviewed by me: Yes (Tele - A-fib in 80's) Phys Exam - Physical Examination Constitutional: NAD opens eyes to name, mumbles HEENT: PERRLA, sclera anicteric, oral pharynx no lesions Neck: no nodes, no JVD, supple, full ROM Respiratory: no wheezing, no rales, no rhonchi, clear to auscultation bilateral S1, S2 Cardiovascular: no significant murmur, no rub, irregular Gastrointestinal: soft, non-tender, no distention, positive bowel sounds Musculoskeletal: no edema, pulses present Neurological: moves all 4 limbs A x O x 1 Skin: normal turgor, cap refill <2 seconds Dx/Plan (1) Atrial fibrillation with RVR Code(s): I48.91 - UNSPECIFIED ATRIAL FIBRILLATION Status: Acute Comment: Continue rate-control strategy, titrate Cardizem to clinical response, no anticoagulation due to GI bleed (2) GI bleed Code(s): K92.2 - GASTROINTESTINAL HEMORRHAGE, UNSPECIFIED Status: Suspected Comment: Suspected GI source, s/p 2u PRBC's, serial H/H monitoring, GI consult appreciated (3) Acute blood loss anemia Code(s): D62 - ACUTE POSTHEMORRHAGIC ANEMIA Status: Acute Comment: See above , serial CBC (4) RONEL (acute kidney injury) Code(s): N17.9 - ACUTE KIDNEY FAILURE, UNSPECIFIED Status: Acute Comment: Avoid nephrotoxic meds and limit contrast exposure, serial creatinine, slow improvement (5) Acute hypernatremia Code(s): E87.0 - HYPEROSMOLALITY AND HYPERNATREMIA Status: Acute Comment: slow improvement, change IVF's D5W @ 50ml/h, serial Na+ (6) Physical deconditioning Code(s): R53.81 - OTHER MALAISE Status: Chronic Comment: PT for mobilization (7) Alzheimer's dementia Code(s): G30.9 - ALZHEIMER'S DISEASE, UNSPECIFIED; F02.80 - DEMENTIA IN OTH DISEASES CLASSD ELSWHR W/O BEHAVRL DISTURB Status: Chronic Comment: Advanced dementia, will return to [facility] upon d/c (8) Neutrophilic leukocytosis Code(s): D72.9 - DISORDER OF WHITE BLOOD CELLS, UNSPECIFIED Status: Acute Comment: Etiology unclear, suspect stress demargination however will monitor for infectious etiology, no current infectious etiology identified, hold abx - Plan [employer] social worker, DVT proph w/SCDs Stable currently -: Continue D5W IV -: Cardizem converted to po -: Continue Metoprolol -: No anticoagulation due GI bleed/anemia/fall risk AM lab: CMP, CBC
[2018-09-21 04:38] LABS: #Eosinphils 0.2 thou/uL (0.0-0.7); #Lymphocytes 1.6 thou/uL (1.20-3.40); #Monocytes 1.1 thou/uL (0.11-0.59); #Neutrophils 7.8 thou/uL (1.40-6.50); %Basophils 0.3 % (0.0-1.0); %Eosinophils 2.1 % (0.0-10.0); %Neutrophils 72.6 % (42.0-75.0); Hemoglobin 8.6 g/dL (12.0-16.0); Mean Corpuscular HGB CONC 32.2 g/dL (32.0-36.0); Mean Corpuscular Hemoglobin 31.3 pg (27.0-31.0); Mean Corpuscular Volume 97.3 fL (78.0-98.0); Mean Platelet Volume 9.1 fL (7.4-10.4); Platelet Count 227 thou/uL (130-400); RBC Distribution Width 15.9 % (11.5-14.5); Red Blood Cell (RBC) Count 2.75 mill/uL (4.20-5.40); White Blood Cell (WBC) Count 10.8 thou/uL (4.8-10.8)
[2018-09-21 04:58] LABS: ALT (SGPT) 105 U/L (8-55); AST (SGOT) 80 U/L (5-34); Albumin 2.7 g/dL (3.4-4.8); Alkaline Phosphatase 139 U/L (40-150); Anion Gap 11 mmol/L (10-20); BUN (Urea Nitrogen) 61 mg/dL (9.8-20.1); Bilirubin, Total 0.5 mg/dL (0.2-1.2); Calc. Creatinine Clearance 15 mL/min (70-130); Calcium 8.1 mg/dL (7.8-10.44); Carbon Dioxide 20 mmol/L (23-31); Estimated GFR-MDRD 16; Globulin 3.2 g/dL (2.4-3.5); Glucose 106 mg/dL (83-110); Potassium 3.5 mmol/L (3.5-5.1); Protein, Total 5.9 g/dL (6.0-8.3); Sodium 153 mmol/L (136-145)
[2018-09-21 05:03] LABS: Chloride 126 mmol/L (98-107); Critical Call Chemistry NUR.AEB@0503
[2018-09-21] MEDS: Levothyroxine Sodium 112 MCG TAB PO SCH (06:06)
[2018-09-21] MEDS: Dextrose 5% in Water 1,000 ML IV SCH (09:08)
[2018-09-21] MEDS: Metoprolol Tartrate 50 MG TAB PO SCH ×2 (09:08→20:39)
--- NOTE | 2018-09-21 09:27 | PRG ---
DATE OF SERVICE: 09/21/2018 SUBJECTIVE: Fredy Quigley this morning somewhat better. Electrolytes have improved somewhat. She is on low-dose IV fluids, D5 at 50 now. Nurses tell me that she is eating a breakfast with help. OBJECTIVE: VITAL SIGNS: Temperature 97, pulse 101, and blood pressure 157/98. CHEST: Decreased breath sounds. No wheezing. CARDIAC: Normal S1 and S2. No gallops. ABDOMEN: No mass. IMPRESSION: Encephalopathy, sepsis, electrolyte imbalance, renal failure. PLAN: Continue slow hydration. Eventually placement. Job ID: [id number]
--- NOTE | 2018-09-21 10:09 | PDOC.CTH ---
Cardiology Progress Note - Subjective The pt seen and examined. No overnight events. No cardiac complaints. - Objective Vital Signs Temp Pulse Resp BP Pulse Ox 09/21/18 07:43 98 09/21/18 07:15 97.4 F L 101 H 18 157/98 H 99 09/21/18 04:00 97.4 F L 95 24 H 92/53 L 95 09/21/18 00:00 98.2 F 89 21 H 159/96 H 95 Weight 139 lb 14.4 oz 09/20/18 09/21/18 09/22/18 06:59 06:59 06:59 Intake Total 1920 1789.6 Output Total 5 0 Balance 1915 1789.6 - Physical Examination General/Neuro: alert & oriented x3 Neck: no JVD present Lungs: other: (diminished at bases) Heart: other: (irregular) Abdomen: soft Extremities: other: (No edema) - Telemetry Telemetry Rhythm: AFib 80-90s - Labs Result Diagrams: 09/21/18 04:11 09/21/18 04:11 Troponin/CKMB CK-MB (CK-2) 5.3 ng/mL (0-6.6) 09/18/18 Unknown Troponin I 0.061 ng/mL (< 0.028) H 09/18/18 Unknown - Assessment/Plan 1. Afib with RVR - HR well controlled with Diltizaem 30mg BID with Metoprolol. Not on OACs due to hx of Anemia possible 2/2 GI bleed. 2. Anemia, multifactorial - Hgb today was 8.6 from 9.0. S/p 2 units Tx. 3. RONEL on CKD - improving. 4. Hypernatremia/Hyperchloremia - Slightly improving with D5W. 5. Abnormal LFT's. - improving; cont. to monitor 6. Alzheimer's dementia MAR reviewed Pt. seen and eval. by me. I agree with the A/P by the BONDING MACHINE OPERATOR. She does seem more coherent than what was decsribed on the admission evaluations. irreg. rhythm. Chest clear. pt. seems dehydrated. Improving. Review of Systems - Review of Systems Constitutional: reports: no symptoms reported EENTM: reports: no symptoms reported Respiratory: reports: no symptoms reported Cardiac (ROS): reports: no symptoms reported ABD/GI: reports: no symptoms reported : reports: no symptoms reported
--- NOTE | 2018-09-21 11:11 | PDOC.PN ---
- Subjective Encounter Start Date: 09/21/18 Encounter Start Time: 11:05 Subjective: f/u for A-fib RVR now rate-controlled on po Cardizem/Metoprolol. Also -: with acute/chronic anemia suspected GI loss s/p 2u PRBC's. - Objective Resuscitation Status - Order Detail: 09/18/18 17:42 Resuscitation Status Routine Resuscitation Status: DNAR: NO Resuscitation Discussed with: Family and son PATRICIA Reviewed: Yes Vital Signs & Weight: Vital Signs (12 hours) Temp Pulse Resp BP Pulse Ox 09/21/18 07:43 98 09/21/18 07:15 97.4 F L 101 H 18 157/98 H 99 09/21/18 04:00 97.4 F L 95 24 H 92/53 L 95 09/21/18 00:00 98.2 F 89 21 H 159/96 H 95 Weight Weight 139 lb 14.4 oz I&O: 09/20/18 09/21/18 09/22/18 06:59 06:59 06:59 Intake Total 1920 1789.6 Output Total 5 0 Balance 1915 1789.6 Result Diagrams: 09/21/18 04:11 09/21/18 04:11 Additional Labs: Microbiology 09/19/18 08:50 Stool Stool Occult Blood (TJ) - Final 09/18/18 11:20 Stool - Pending Stool Occult Blood (TJ) - Final 09/18/18 12:30 Venous blood - Right Hand Blood Culture - Preliminary Specimen has been received and culture in progress. No Growth to date. 09/18/18 12:30 Central Line - Left external jugular vein Blood Culture - Preliminary Specimen has been received and culture in progress. No Growth to date. Laboratory Tests 09/18/18 09/18/18 09/18/18 12:14 23:02 Unknown WBC Hgb 10.1 L Neutrophils % (Manual) Band Neuts % (Manual) Retic Count 6.9 H Sodium 154 H Chloride 123 H BUN 80 H Creatinine 3.33 H Lactic Acid Iron TIBC Ferritin AST ALT Alkaline Phosphatase TSH 3rd Generation 09/18/18 09/18/18 09/19/18 Unknown Unknown 04:35 WBC 23.6 H Hgb 6.2 L Neutrophils % (Manual) Band Neuts % (Manual) 12 H Retic Count Sodium 155 H Chloride 127 H* BUN 79 H Creatinine 3.20 H Lactic Acid 1.2 Iron 35 L TIBC 278 Ferritin AST ALT Alkaline Phosphatase TSH 3rd Generation 09/19/18 09/19/18 09/20/18 04:35 04:35 05:37 WBC 21.5 H Hgb 9.5 L Neutrophils % (Manual) 51 Band Neuts % (Manual) 27 H Retic Count Sodium Chloride BUN Creatinine Lactic Acid Iron TIBC Ferritin 54.04 AST 124 H ALT 119 H Alkaline Phosphatase 157 H TSH 3rd Generation 7.4863 H 09/20/18 05:37 WBC Hgb Neutrophils % (Manual) 95 H Band Neuts % (Manual) 1 L Retic Count Sodium Chloride BUN Creatinine Lactic Acid Iron TIBC Ferritin AST ALT Alkaline Phosphatase TSH 3rd Generation EKG Reviewed by me: Yes (Tele - A-fib in 70's) Phys Exam - Physical Examination Constitutional: NAD HEENT: PERRLA, sclera anicteric, oral pharynx no lesions Neck: no nodes, no JVD, supple, full ROM Respiratory: no wheezing, no rales, no rhonchi, clear to auscultation bilateral S1, S2 Cardiovascular: no significant murmur, no rub, irregular Gastrointestinal: soft, non-tender, no distention, positive bowel sounds Musculoskeletal: no edema, pulses present Neurological: moves all 4 limbs A x O x 1 to person Skin: normal turgor, cap refill <2 seconds Dx/Plan (1) Atrial fibrillation with RVR Code(s): I48.91 - UNSPECIFIED ATRIAL FIBRILLATION Status: Acute Comment: Continue rate-control strategy, titrate Cardizem to clinical response, no anticoagulation due to GI bleed, recurrent anemia, continue Metoprolol 50mg BID (2) GI bleed Code(s): K92.2 - GASTROINTESTINAL HEMORRHAGE, UNSPECIFIED Status: Suspected Comment: Suspected GI source, s/p 2u PRBC's, serial H/H monitoring, GI consult appreciated (3) Acute blood loss anemia Code(s): D62 - ACUTE POSTHEMORRHAGIC ANEMIA Status: Acute Comment: See above , serial CBC (4) RONEL (acute kidney injury) Code(s): N17.9 - ACUTE KIDNEY FAILURE, UNSPECIFIED Status: Acute Comment: Avoid nephrotoxic meds and limit contrast exposure, serial creatinine, slow improvement, continue low-volume IVF's (5) Acute hypernatremia Code(s): E87.0 - HYPEROSMOLALITY AND HYPERNATREMIA Status: Acute Comment: slow improvement, change IVF's D5W @ 50ml/h, serial Na+ (6) Physical deconditioning Code(s): R53.81 - OTHER MALAISE Status: Chronic Comment: PT for mobilization (7) Alzheimer's dementia Code(s): G30.9 - ALZHEIMER'S DISEASE, UNSPECIFIED; F02.80 - DEMENTIA IN OTH DISEASES CLASSD ELSWHR W/O BEHAVRL DISTURB Status: Chronic Comment: Advanced dementia, will return to [facility] upon d/c (8) Neutrophilic leukocytosis Code(s): D72.9 - DISORDER OF WHITE BLOOD CELLS, UNSPECIFIED Status: Acute Comment: Etiology unclear, suspect stress demargination however will monitor for infectious etiology, no current infectious etiology identified, hold abx, resolving - Plan PT/OT, social worker aide, speech therapy, DVT proph w/SCDs Stable currently -: IV Iron infusion today -: Continue Metoprolol and Cardizem -: No anticoagulation due to severe anemia/suspected GI bleed -: Continue D5W IVF * AM lab: CMP, CBC * Likely d/c back to [facility] in 24-48h
[2018-09-21] MEDS ORDERED: Iron Sucrose Complex 200 MG in Sodium Chloride 0.9% 250 ML 250 ML IVPB SCH (11:15)
[2018-09-21] MEDS ORDERED: Iron, Sodium Ferric Gluconate 250 MG in Sodium Chloride 0.9% 100 ML IVPB SCH (11:45)
[2018-09-21] MEDS: Ferrous Sulfate 325 MG TAB PO SCH (20:38)
[2018-09-22 04:44] LABS: ALT (SGPT) 81 U/L (8-55); AST (SGOT) 45 U/L (5-34); Albumin 2.6 g/dL (3.4-4.8); Alkaline Phosphatase 136 U/L (40-150); Anion Gap 11 mmol/L (10-20); BUN (Urea Nitrogen) 49 mg/dL (9.8-20.1); Bilirubin, Total 0.5 mg/dL (0.2-1.2); Calc. Creatinine Clearance 17 mL/min (70-130); Calcium 8.3 mg/dL (7.8-10.44); Carbon Dioxide 18 mmol/L (23-31); Chloride 123 mmol/L (98-107); Estimated GFR-MDRD 19; Globulin 3.3 g/dL (2.4-3.5); Glucose 93 mg/dL (83-110); Potassium 3.4 mmol/L (3.5-5.1); Protein, Total 5.9 g/dL (6.0-8.3); Sodium 149 mmol/L (136-145)
[2018-09-22 05:02] LABS: Hemoglobin 8.9 g/dL (12.0-16.0); Hypochromia SLIGHT = 6-15 cells (100X) (0-5/hpf); Lymphocytes 10 % (21-51); MDiff Complete? YES; Mean Corpuscular HGB CONC 32.7 g/dL (32.0-36.0); Mean Corpuscular Hemoglobin 31.4 pg (27.0-31.0); Mean Corpuscular Volume 96.3 fL (78.0-98.0); Mean Platelet Volume 9.1 fL (7.4-10.4); Monocytes 4 % (0-10); Neutrophil 84 % (42-75); Platelet Count 222 thou/uL (130-400); Platelet Morphology Comment Appears Adequate; RBC Distribution Width 15.6 % (11.5-14.5); Reactive Lymphocytes 2 % (0-10); Red Blood Cell (RBC) Count 2.84 mill/uL (4.20-5.40); White Blood Cell (WBC) Count 9.5 thou/uL (4.8-10.8)
[2018-09-22] MEDS: Dextrose 5% in Water 1,000 ML IV SCH (06:21)
[2018-09-22] MEDS: Levothyroxine Sodium 112 MCG TAB PO SCH (06:22)
[2018-09-22] MEDS: Ferrous Sulfate 325 MG TAB PO SCH ×2 (08:50→20:46)
[2018-09-22] MEDS: Metoprolol Tartrate 50 MG TAB PO SCH ×2 (08:50→20:46)
--- NOTE | 2018-09-22 09:37 | PRG ---
DATE OF SERVICE: 09/22/2018 SUBJECTIVE: This morning, she is much more responsive. OBJECTIVE: VITAL SIGNS: Sats are 95% on 2 L, temperature 98, pulse 108, respiratory rate 20, and blood pressure is 164/90. CHEST: Decreased breath sounds. No wheezing. CARDIAC: Normal S1 and S2. No gallop. ABDOMEN: No masses. LABORATORY DATA: White count 9000, H and H 9 and 27, platelet count 222. BUN and creatinine much improved. BUN is 49 today, it was 80 on the day of admission. IMPRESSION: 1. Renal failure, azotemia, prerenal, much improved. 2. Sepsis syndrome, all cultures negative. 3. Dementia. PLAN: She has been transferred out of the MICU. She is still on Cardizem. Pulmonary will follow while in the MICU. Job ID: [id number]
--- NOTE | 2018-09-22 10:25 | PDOC.CTH ---
Cardiology Progress Note - Subjective Pt. seen and eval. no cardiac complaints today. - Objective Vital Signs Temp Pulse Resp BP Pulse Ox 09/22/18 07:29 95 09/22/18 07:05 98.2 F 108 H 20 164/90 H 95 09/22/18 03:41 97.7 F 88 16 140/96 H 93 L 09/21/18 23:45 98.0 F 89 16 155/88 H 91 L Weight 141 lb 8 oz 09/21/18 09/22/18 09/23/18 06:59 06:59 06:59 Intake Total 1789.6 1813 Output Total 0 0 Balance 1789.6 1813 - Physical Examination General/Neuro: NAD Neck: no JVD present Lungs: other: (few basilar ralews.) Heart: other: (irreg/irreg.) - Telemetry Telemetry Rhythm: Afib. HR 100's. - Labs Result Diagrams: 09/22/18 04:03 09/22/18 04:03 Troponin/CKMB CK-MB (CK-2) 5.3 ng/mL (0-6.6) 09/18/18 Unknown Troponin I 0.061 ng/mL (< 0.028) H 09/18/18 Unknown - Assessment/Plan 1. Afib with RVR - HR well controlled with Diltizaem 30mg BID and IV, with Metoprolol. Will d/c IV dilt. and increases po. Not on OACs due to hx of Anemia possible 2/2 GI bleed. Order echo for LV function and LA size. 2. Anemia, multifactorial - 3. RONEL on CKD - improving. 4. Hypernatremia/Hyperchloremia - improving 5. Abnormal LFT's. - improving; cont. to monitor 6. Alzheimer's dementia 7. Dehydration improving. 8. HTN: increase dilt.
--- NOTE | 2018-09-22 15:21 | PDOC.PN ---
- Subjective Encounter Start Date: 09/22/18 Encounter Start Time: 15:15 Subjective: f/u for RONEL, A-fib and suspected GI bleed and acute anemia s/p 2u PRBC's -: and IV Iron infusion. - Objective Resuscitation Status - Order Detail: 09/18/18 17:42 Resuscitation Status Routine Resuscitation Status: DNAR: NO Resuscitation Discussed with: Family and son PATRICIA Reviewed: Yes Vital Signs & Weight: Vital Signs (12 hours) Temp Pulse Resp BP Pulse Ox 09/22/18 15:13 97.4 F L 108 H 20 155/93 H 90 L 09/22/18 10:53 97.0 F L 76 24 H 123/79 94 L 09/22/18 07:29 95 09/22/18 07:05 98.2 F 108 H 20 164/90 H 95 09/22/18 03:41 97.7 F 88 16 140/96 H 93 L Weight Weight 141 lb 8 oz I&O: 09/21/18 09/22/18 09/23/18 06:59 06:59 06:59 Intake Total 1789.6 1813 Output Total 0 0 Balance 1789.6 1813 Result Diagrams: 09/22/18 04:03 09/22/18 04:03 Additional Labs: Microbiology 09/19/18 08:50 Stool Stool Occult Blood (TJ) - Final 09/18/18 11:20 Stool - Pending Stool Occult Blood (TJ) - Final 09/18/18 12:30 Venous blood - Right Hand Blood Culture - Preliminary Specimen has been received and culture in progress. No Growth to date. 09/18/18 12:30 Central Line - Left external jugular vein Blood Culture - Preliminary Specimen has been received and culture in progress. No Growth to date. Laboratory Tests 09/18/18 09/18/18 09/18/18 12:14 23:02 Unknown WBC Hgb 10.1 L Neutrophils % (Manual) Band Neuts % (Manual) Retic Count 6.9 H Sodium 154 H Potassium Chloride 123 H BUN 80 H Creatinine 3.33 H Lactic Acid Iron TIBC Ferritin AST ALT Alkaline Phosphatase TSH 3rd Generation 09/18/18 09/18/18 09/19/18 Unknown Unknown 04:35 WBC 23.6 H Hgb 6.2 L Neutrophils % (Manual) Band Neuts % (Manual) 12 H Retic Count Sodium 155 H Potassium Chloride 127 H* BUN 79 H Creatinine 3.20 H Lactic Acid 1.2 Iron 35 L TIBC 278 Ferritin AST ALT Alkaline Phosphatase TSH 3rd Generation 09/19/18 09/19/18 09/20/18 04:35 04:35 05:37 WBC 21.5 H Hgb 9.5 L Neutrophils % (Manual) 51 Band Neuts % (Manual) 27 H Retic Count Sodium Potassium Chloride BUN Creatinine Lactic Acid Iron TIBC Ferritin 54.04 AST 124 H ALT 119 H Alkaline Phosphatase 157 H TSH 3rd Generation 7.4863 H 09/20/18 09/21/18 09/21/18 05:37 04:11 04:11 WBC Hgb 8.6 L Neutrophils % (Manual) 95 H Band Neuts % (Manual) 1 L Retic Count Sodium 153 H Potassium 3.5 Chloride 126 H* BUN 61 H Creatinine 2.75 H Lactic Acid Iron TIBC Ferritin AST 80 H ALT 105 H Alkaline Phosphatase TSH 3rd Generation 09/22/18 04:03 WBC Hgb Neutrophils % (Manual) Band Neuts % (Manual) Retic Count Sodium Potassium Chloride BUN Creatinine Lactic Acid Iron TIBC Ferritin AST 45 H ALT 81 H Alkaline Phosphatase TSH 3rd Generation EKG Reviewed by me: Yes (Tele - A-fib in 80's) Phys Exam - Physical Examination alert, responsive HEENT: PERRLA, sclera anicteric, oral pharynx no lesions Neck: no nodes, no JVD, supple, full ROM Respiratory: no wheezing, no rales, no rhonchi, clear to auscultation bilateral S1, S2 Cardiovascular: no significant murmur, no rub, irregular Gastrointestinal: soft, non-tender, no distention, positive bowel sounds Musculoskeletal: no edema, pulses present Neurological: normal sensation, moves all 4 limbs A x O x 1 Skin: normal turgor, cap refill <2 seconds Dx/Plan (1) Atrial fibrillation with RVR Code(s): I48.91 - UNSPECIFIED ATRIAL FIBRILLATION Status: Acute Comment: Continue rate-control strategy, titrate Cardizem to clinical response, no anticoagulation due to GI bleed, recurrent anemia, continue Metoprolol 50mg BID (2) GI bleed Code(s): K92.2 - GASTROINTESTINAL HEMORRHAGE, UNSPECIFIED Status: Suspected Comment: Suspected GI source, s/p 2u PRBC's, serial H/H monitoring, GI consult appreciated (3) Acute blood loss anemia Code(s): D62 - ACUTE POSTHEMORRHAGIC ANEMIA Status: Acute Comment: See above , serial CBC (4) RONEL (acute kidney injury) Code(s): N17.9 - ACUTE KIDNEY FAILURE, UNSPECIFIED Status: Acute Comment: Avoid nephrotoxic meds and limit contrast exposure, serial creatinine, slow improvement, continue low-volume IVF's (5) Acute hypernatremia Code(s): E87.0 - HYPEROSMOLALITY AND HYPERNATREMIA Status: Acute Comment: slow improvement, change IVF's D5W @ 50ml/h, serial Na+ (6) Physical deconditioning Code(s): R53.81 - OTHER MALAISE Status: Chronic Comment: PT for mobilization (7) Alzheimer's dementia Code(s): G30.9 - ALZHEIMER'S DISEASE, UNSPECIFIED; F02.80 - DEMENTIA IN [facility] DISEASES CLASSD ELSWHR W/O BEHAVRL DISTURB Status: Chronic Comment: Advanced dementia, will return to [facility] upon d/c (8) Neutrophilic leukocytosis Code(s): D72.9 - DISORDER OF WHITE BLOOD CELLS, UNSPECIFIED Status: Acute Comment: Etiology unclear, suspect stress demargination however will monitor for infectious etiology, no current infectious etiology identified, hold abx, resolving - Plan PT/OT, social insurance analyst, out of bed/ambulate, DVT proph w/SCDs Stable currently -: Continue D5W IVF's another 24h -: Continue FeSO4 325mg BID -: OOB/PT -: AM lab: BMP, CBC * Transfer to telemetry
[2018-09-23] MEDS: Dextrose 5% in Water 1,000 ML IV SCH (01:34)
[2018-09-23 05:17] LABS: Anion Gap 11 mmol/L (10-20); BUN (Urea Nitrogen) 40 mg/dL (9.8-20.1); Calc. Creatinine Clearance 18 mL/min (70-130); Calcium 8.2 mg/dL (7.8-10.44); Carbon Dioxide 18 mmol/L (23-31); Chloride 120 mmol/L (98-107); Estimated GFR-MDRD 21; Glucose 86 mg/dL (83-110); Potassium 3.3 mmol/L (3.5-5.1); Sodium 146 mmol/L (136-145)
[2018-09-23] MEDS: Levothyroxine Sodium 112 MCG TAB PO SCH (05:32)
[2018-09-23 05:49] LABS: #Eosinphils 0.3 thou/uL (0.0-0.7); #Lymphocytes 1.4 thou/uL (1.20-3.40); #Monocytes 0.7 thou/uL (0.11-0.59); #Neutrophils 7.1 thou/uL (1.40-6.50); %Basophils 0.2 % (0.0-1.0); %Eosinophils 2.8 % (0.0-10.0); %Lymphocytes 14.3 % (21.0-51.0); %Monocytes 7.7 % (0.0-10.0); %Neutrophils 75.1 % (42.0-75.0); Hemoglobin 9.3 g/dL (12.0-16.0); Mean Corpuscular HGB CONC 32.1 g/dL (32.0-36.0); Mean Corpuscular Hemoglobin 30.7 pg (27.0-31.0); Mean Corpuscular Volume 95.8 fL (78.0-98.0); Mean Platelet Volume 9.3 fL (7.4-10.4); Platelet Count 230 thou/uL (130-400); RBC Distribution Width 15.5 % (11.5-14.5); Red Blood Cell (RBC) Count 3.02 mill/uL (4.20-5.40); White Blood Cell (WBC) Count 9.5 thou/uL (4.8-10.8)
[2018-09-23] MEDS: Metoprolol Tartrate 50 MG TAB PO SCH ×2 (08:24→21:04)
[2018-09-23] MEDS: Ferrous Sulfate 325 MG TAB PO SCH ×2 (08:24→21:04)
--- NOTE | 2018-09-23 09:05 | PRG ---
DATE OF SERVICE: 09/23/2018 SUBJECTIVE: This morning, she appears more awake, responsive. OBJECTIVE: VITAL SIGNS: Blood pressure 150/96, saturations 95% on room air, respiratory rate 18, pulse 80. GENERAL: She is awake, more responsive, in no distress. CHEST: Decreased breath sounds. No wheezing. CARDIAC: Normal S1, S2. No gallops. ABDOMEN: No masses. LABORATORY DATA: White count is 9000. BUN and creatinine at its baseline of 2.2. Otherwise, sodium is much improved. IMPRESSION: 1. Sepsis syndrome. 2. Urinary tract infection. 3. Azotemia, much improved. 4. Supraventricular tachycardia at baseline. 5. Severe dementia. PLAN: She can be transferred back to the skilled nursing. I am discontinuing all her IV fluids. Electrolytes are much improved from medical care. We will follow at a distance. Job ID: [id number]
--- NOTE | 2018-09-23 10:49 | PDOC.PN ---
- Subjective Encounter Start Date: 09/23/18 Encounter Start Time: 10:40 Subjective: f/u for RONEL, acute anemia and suspected GI bleed s/p 2u PRBC's. Overall -: doing well and more alert per nursing. No new issues reported. - Objective Resuscitation Status - Order Detail: 09/18/18 17:42 Resuscitation Status Routine Resuscitation Status: DNAR: NO Resuscitation Discussed with: Family and son PATRICIA Reviewed: Yes Vital Signs & Weight: Vital Signs (12 hours) Temp Pulse Resp BP BP Pulse Ox 09/23/18 08:24 110 H 155/96 H 09/23/18 07:19 97 09/23/18 07:10 97.9 F 105 H 18 150/93 H 96 09/23/18 03:32 97.8 F 104 H 16 123/97 H 94 L 09/22/18 23:43 97.8 F 90 16 133/91 H 95 Weight Weight 140 lb 8 oz I&O: 09/22/18 09/23/18 09/24/18 06:59 06:59 06:59 Intake Total 1813 1758 240 Output Total 0 Balance 1813 1758 240 Result Diagrams: 09/23/18 04:06 09/23/18 04:06 Additional Labs: Microbiology 09/19/18 08:50 Stool Stool Occult Blood (TJ) - Final 09/18/18 11:20 Stool - Pending Stool Occult Blood (TJ) - Final 09/18/18 12:30 Venous blood - Right Hand Blood Culture - Preliminary Specimen has been received and culture in progress. No Growth to date. 09/18/18 12:30 Central Line - Left external jugular vein Blood Culture - Preliminary Specimen has been received and culture in progress. No Growth to date. Laboratory Tests 09/18/18 09/18/18 09/18/18 12:14 23:02 Unknown WBC Hgb 10.1 L Neutrophils % (Manual) Band Neuts % (Manual) Retic Count 6.9 H Sodium 154 H Potassium Chloride 123 H BUN 80 H Creatinine 3.33 H Lactic Acid Iron TIBC Ferritin AST ALT Alkaline Phosphatase TSH 3rd Generation 09/18/18 09/18/18 09/19/18 Unknown Unknown 04:35 WBC 23.6 H Hgb 6.2 L Neutrophils % (Manual) Band Neuts % (Manual) 12 H Retic Count Sodium 155 H Potassium Chloride 127 H* BUN 79 H Creatinine 3.20 H Lactic Acid 1.2 Iron 35 L TIBC 278 Ferritin AST ALT Alkaline Phosphatase TSH 3rd Generation 09/19/18 09/19/18 09/20/18 04:35 04:35 05:37 WBC 21.5 H Hgb 9.5 L Neutrophils % (Manual) 51 Band Neuts % (Manual) 27 H Retic Count Sodium Potassium Chloride BUN Creatinine Lactic Acid Iron TIBC Ferritin 54.04 AST 124 H ALT 119 H Alkaline Phosphatase 157 H TSH 3rd Generation 7.4863 H 09/20/18 09/21/18 09/21/18 05:37 04:11 04:11 WBC Hgb 8.6 L Neutrophils % (Manual) 95 H Band Neuts % (Manual) 1 L Retic Count Sodium 153 H Potassium 3.5 Chloride 126 H* BUN 61 H Creatinine 2.75 H Lactic Acid Iron TIBC Ferritin AST 80 H ALT 105 H Alkaline Phosphatase TSH 3rd Generation 09/22/18 04:03 WBC Hgb Neutrophils % (Manual) Band Neuts % (Manual) Retic Count Sodium 149 H Potassium 3.4 L Chloride BUN Creatinine 2.41 H Lactic Acid Iron TIBC Ferritin AST 45 H ALT 81 H Alkaline Phosphatase TSH 3rd Generation Radiology Reviewed by me: Yes (2D echo - EF 45-50%, mod-severe MR, mod TR, diast dysfxn) EKG Reviewed by me: Yes (Tele - A-fib in 70's) Phys Exam - Physical Examination Constitutional: NAD HEENT: PERRLA, sclera anicteric, oral pharynx no lesions Neck: no nodes, no JVD, supple, full ROM Respiratory: no wheezing, no rales, no rhonchi, clear to auscultation bilateral S1, S2 Cardiovascular: no rub, gallop, irregular Gastrointestinal: soft, non-tender, no distention, positive bowel sounds Musculoskeletal: no edema, pulses present Neurological: normal sensation, moves all 4 limbs Skin: normal turgor, cap refill <2 seconds Dx/Plan (1) Atrial fibrillation with RVR Code(s): I48.91 - UNSPECIFIED ATRIAL FIBRILLATION Status: Acute Comment: Continue rate-control strategy, titrate Cardizem to clinical response, no anticoagulation due to GI bleed, recurrent anemia, continue Metoprolol 50mg BID (2) GI bleed Code(s): K92.2 - GASTROINTESTINAL HEMORRHAGE, UNSPECIFIED Status: Suspected Comment: Suspected GI source, s/p 2u PRBC's, serial H/H monitoring, GI consult appreciated (3) Acute blood loss anemia Code(s): D62 - ACUTE POSTHEMORRHAGIC ANEMIA Status: Acute Comment: See above , serial CBC (4) RONEL (acute kidney injury) Code(s): N17.9 - ACUTE KIDNEY FAILURE, UNSPECIFIED Status: Acute Comment: Avoid nephrotoxic meds and limit contrast exposure, serial creatinine, slow improvement, continue low-volume IVF's (5) Acute hypernatremia Code(s): E87.0 - HYPEROSMOLALITY AND HYPERNATREMIA Status: Acute Comment: Improved, encourage increased free-H2O intake (6) Physical deconditioning Code(s): R53.81 - OTHER MALAISE Status: Chronic Comment: PT for mobilization (7) Alzheimer's dementia Code(s): G30.9 - ALZHEIMER'S DISEASE, UNSPECIFIED; F02.80 - DEMENTIA IN OTH DISEASES CLASSD ELSWHR W/O BEHAVRL DISTURB Status: Chronic Comment: Advanced dementia, will return to [facility] upon d/c (8) Neutrophilic leukocytosis Code(s): D72.9 - DISORDER OF WHITE BLOOD CELLS, UNSPECIFIED Status: Acute Comment: Etiology unclear, suspect stress demargination however will monitor for infectious etiology, no current infectious etiology identified, hold abx, resolved - Plan PT/OT, social security specialist, speech therapy, DVT proph w/SCDs Stable currently -: Klor-con 20meq BID -: Continue Protonix 40mg daily -: Saline lock IVF's -: AM lab: BMP * Likely back to [facility] in 24-48h
--- NOTE | 2018-09-23 17:54 | PDOC.CTH ---
Cardiology Progress Note - Subjective The pt seen and examined. No overnight events. No cardiac complaints. She seems more lethargic today. - Objective Vital Signs Temp Pulse Resp BP BP Pulse Ox 09/23/18 16:36 98.2 F 96 16 138/87 95 09/23/18 11:19 97.5 F L 77 19 134/71 93 L 09/23/18 08:24 110 H 155/96 H 09/23/18 07:19 97 09/23/18 07:10 97.9 F 105 H 18 150/93 H 96 Weight 140 lb 8 oz 09/22/18 09/23/18 09/24/18 06:59 06:59 06:59 Intake Total 1813 1758 240 Output Total 0 Balance 1813 1758 240 - Physical Examination General/Neuro: other: (lethergic) Lungs: other: (coarses and diminished at bases) Heart: other: (irregular) Abdomen: soft Extremities: other: (No edema) - Telemetry Telemetry Rhythm: Afib 90s - Labs Result Diagrams: 09/23/18 04:06 09/23/18 04:06 Troponin/CKMB CK-MB (CK-2) 5.3 ng/mL (0-6.6) 09/18/18 Unknown Troponin I 0.061 ng/mL (< 0.028) H 09/18/18 Unknown - Assessment/Plan 1. Afib with RVR - HR well controlled with Diltizaem 240mg qd with Metoprolol. Not on OACs due to hx of Anemia possible 2/2 GI bleed. 2. Anemia, multifactorial - stable 3. RONEL on CKD - improving. 4. Hypernatremia/Hyperchloremia - improving 5. Abnormal LFT's. - improving; cont. to monitor 6. Alzheimer's dementia 7. Dehydration - improving. 8. HTN - stable 9. Resuscitation Status: DNAR MAR reviewed * Echo on 09/22/2018 showed EF 45-50%, mild ERA, mod-severe MR, mild AR, mild- mod TR, and mild IL. Review of Systems - Review of Systems Constitutional: reports: see HPI, weakness EENTM: reports: no symptoms reported Respiratory: reports: no symptoms reported Cardiac (ROS): reports: no symptoms reported ABD/GI: reports: no symptoms reported : reports: no symptoms reported Musculoskeletal: reports: no symptoms reported
[2018-09-24] MEDS: ALPRAZolam 0.5 MG TAB PO PRN (01:06)
[2018-09-24] MEDS: Levothyroxine Sodium 112 MCG TAB PO SCH (05:30)
[2018-09-24 07:00] LABS: Anion Gap 11 mmol/L (10-20); BUN (Urea Nitrogen) 37 mg/dL (9.8-20.1); Calc. Creatinine Clearance 19 mL/min (70-130); Calcium 8.1 mg/dL (7.8-10.44); Carbon Dioxide 18 mmol/L (23-31); Chloride 118 mmol/L (98-107); Estimated GFR-MDRD 22; Glucose 74 mg/dL (83-110); Potassium 3.9 mmol/L (3.5-5.1); Sodium 143 mmol/L (136-145)
[2018-09-24] MEDS: Ferrous Sulfate 325 MG TAB PO SCH ×2 (09:11→21:20)
[2018-09-24] MEDS: Metoprolol Tartrate 50 MG TAB PO SCH ×2 (09:11→21:20)
--- NOTE | 2018-09-24 12:22 | PDOC.PN ---
- Subjective Encounter Start Date: 09/24/18 Encounter Start Time: 12:15 Subjective: f/u for RONEL, acute anemia s/p 2u PRBC's. Stable overall per nursing. -: Received Xanax at 0100 last pm and is very sleepy today. - Objective Resuscitation Status - Order Detail: 09/18/18 17:42 Resuscitation Status Routine Resuscitation Status: DNAR: NO Resuscitation Discussed with: Family and son PATRICIA Reviewed: Yes Vital Signs & Weight: Vital Signs (12 hours) Temp Pulse Resp BP BP Pulse Ox 09/24/18 09:10 104 H 138/98 H 09/24/18 08:00 98.1 F 104 H 16 138/98 H 97 09/24/18 04:26 98.1 F 102 H 16 149/50 H 93 L 09/24/18 03:23 95 Weight Weight 143 lb I&O: 09/23/18 09/24/18 09/25/18 06:59 06:59 06:59 Intake Total 1758 1050 Balance 1758 1050 Result Diagrams: 09/23/18 04:06 09/24/18 05:06 Additional Labs: Microbiology 09/19/18 08:50 Stool Stool Occult Blood (TJ) - Final 09/18/18 11:20 Stool - Pending Stool Occult Blood (TJ) - Final 09/18/18 12:30 Venous blood - Right Hand Blood Culture - Preliminary Specimen has been received and culture in progress. No Growth to date. 09/18/18 12:30 Central Line - Left external jugular vein Blood Culture - Preliminary Specimen has been received and culture in progress. No Growth to date. Laboratory Tests 09/18/18 09/18/18 09/18/18 12:14 23:02 Unknown WBC Hgb 10.1 L Neutrophils % (Manual) Band Neuts % (Manual) Retic Count 6.9 H Sodium 154 H Potassium Chloride 123 H BUN 80 H Creatinine 3.33 H Lactic Acid Iron TIBC Ferritin AST ALT Alkaline Phosphatase TSH 3rd Generation 09/18/18 09/18/18 09/19/18 Unknown Unknown 04:35 WBC 23.6 H Hgb 6.2 L Neutrophils % (Manual) Band Neuts % (Manual) 12 H Retic Count Sodium 155 H Potassium Chloride 127 H* BUN 79 H Creatinine 3.20 H Lactic Acid 1.2 Iron 35 L TIBC 278 Ferritin AST ALT Alkaline Phosphatase TSH 3rd Generation 09/19/18 09/19/18 09/20/18 04:35 04:35 05:37 WBC 21.5 H Hgb 9.5 L Neutrophils % (Manual) 51 Band Neuts % (Manual) 27 H Retic Count Sodium Potassium Chloride BUN Creatinine Lactic Acid Iron TIBC Ferritin 54.04 AST 124 H ALT 119 H Alkaline Phosphatase 157 H TSH 3rd Generation 7.4863 H 09/20/18 09/21/18 09/21/18 05:37 04:11 04:11 WBC Hgb 8.6 L Neutrophils % (Manual) 95 H Band Neuts % (Manual) 1 L Retic Count Sodium 153 H Potassium 3.5 Chloride 126 H* BUN 61 H Creatinine 2.75 H Lactic Acid Iron TIBC Ferritin AST 80 H ALT 105 H Alkaline Phosphatase TSH 3rd Generation 09/22/18 09/23/18 04:03 04:06 WBC Hgb Neutrophils % (Manual) Band Neuts % (Manual) Retic Count Sodium 149 H 146 H Potassium 3.4 L 3.3 L Chloride BUN 40 H Creatinine 2.41 H 2.22 H Lactic Acid Iron TIBC Ferritin AST 45 H ALT 81 H Alkaline Phosphatase TSH 3rd Generation EKG Reviewed by me: Yes (Tele - A-fib in low 100's) Phys Exam - Physical Examination Constitutional: NAD HEENT: PERRLA, sclera anicteric, oral pharynx no lesions Neck: no nodes, no JVD, supple, full ROM Respiratory: no wheezing, no rales, no rhonchi, clear to auscultation bilateral S1, S2 Cardiovascular: no significant murmur, no rub, irregular Gastrointestinal: soft, non-tender, no distention, positive bowel sounds Musculoskeletal: no edema, pulses present Neurological: moves all 4 limbs Skin: normal turgor, cap refill <2 seconds Dx/Plan (1) Atrial fibrillation with RVR Code(s): I48.91 - UNSPECIFIED ATRIAL FIBRILLATION Status: Acute Comment: Continue rate-control strategy, titrate Cardizem to clinical response, no anticoagulation due to GI bleed, recurrent anemia, continue Metoprolol 50mg BID (2) GI bleed Code(s): K92.2 - GASTROINTESTINAL HEMORRHAGE, UNSPECIFIED Status: Suspected Comment: Suspected GI source, s/p 2u PRBC's, serial H/H monitoring, GI consult appreciated (3) Acute blood loss anemia Code(s): D62 - ACUTE POSTHEMORRHAGIC ANEMIA Status: Acute Comment: See above , serial CBC (4) RONEL (acute kidney injury) Code(s): N17.9 - ACUTE KIDNEY FAILURE, UNSPECIFIED Status: Acute Comment: Avoid nephrotoxic meds and limit contrast exposure, serial creatinine, slow improvement but trending toward baseline, 1/2NS @ 50ml/h (5) Acute hypernatremia Code(s): E87.0 - HYPEROSMOLALITY AND HYPERNATREMIA Status: Acute Comment: Improved, encourage increased free-H2O intake (6) Physical deconditioning Code(s): R53.81 - OTHER MALAISE Status: Chronic Comment: PT for mobilization (7) Alzheimer's dementia Code(s): G30.9 - ALZHEIMER'S DISEASE, UNSPECIFIED; F02.80 - DEMENTIA IN [facility] DISEASES CLASSD ELSWHR W/O BEHAVRL DISTURB Status: Chronic Comment: Advanced dementia, will return to [facility] upon d/c (8) Neutrophilic leukocytosis Code(s): D72.9 - DISORDER OF WHITE BLOOD CELLS, UNSPECIFIED Status: Acute Comment: Etiology unclear, suspect stress demargination however will monitor for infectious etiology, no current infectious etiology identified, hold abx, resolved - Plan PT/OT, social media marketing analyst, DVT proph w/SCDs Stable currently -: Limit sedating medications -: IV 1/2NS @ 50ml/h -: Continue Diltiazem/Metoprolol for rate control -: AM lab: BMP * Likely back to [facility] 09/25/18
[2018-09-24] MEDS: Sodium Chloride 0.45% 1,000 ML IV SCH (13:59)
--- NOTE | 2018-09-24 23:57 | PDOC.CTH ---
Cardiology Progress Note - Subjective The pt seen and examined. No overnight events. She cont. lethergic and drowsy and confused. - Objective Vital Signs Temp Pulse Resp BP Pulse Ox 09/24/18 23:21 75 144/75 H 09/24/18 21:18 98.6 F 112 H 16 144/72 H 95 09/24/18 17:00 96.3 F L 73 15 137/82 09/24/18 13:00 98.2 F 94 14 148/77 H Weight 143 lb 09/23/18 09/24/18 09/25/18 06:59 06:59 06:59 Intake Total 1758 1050 700 Balance 1758 1050 700 - Physical Examination Lungs: other: (diminished at bases) Heart: other: (irregler) Abdomen: soft Extremities: other: (No edema) - Telemetry Telemetry Rhythm: AFib 90-100s - Labs Result Diagrams: 09/23/18 04:06 09/24/18 05:06 Troponin/CKMB CK-MB (CK-2) 5.3 ng/mL (0-6.6) 09/18/18 Unknown Troponin I 0.061 ng/mL (< 0.028) H 09/18/18 Unknown - Assessment/Plan 1. Afib with RVR - HR well controlled with Diltizaem 240mg qd with Metoprolol. Not on OACs due to hx of Anemia possible 2/2 GI bleed. 2. Anemia, multifactorial - stable 3. RONEL on CKD - improving. 4. Hypernatremia/Hyperchloremia - improving 5. Abnormal LFT's. - improving; cont. to monitor 6. Alzheimer's dementia 7. Dehydration - improving. 8. HTN - stable 9. Resuscitation Status: DNAR MAR reviewed * Echo on 09/22/2018 showed EF 45-50%, mild ERA, mod-severe MR, mild AR, mild- mod TR, and mild MA. Review of Systems - Review of Systems Constitutional: reports: see HPI EENTM: reports: see HPI Respiratory: reports: see HPI Cardiac (ROS): reports: see HPI ABD/GI: reports: see HPI : reports: see HPI
[2018-09-25] MEDS: Levothyroxine Sodium 112 MCG TAB PO SCH (04:50)
[2018-09-25] MEDS: Sodium Chloride 0.45% 1,000 ML IV SCH (10:33)
[2018-09-25] MEDS: Metoprolol Tartrate 50 MG TAB PO SCH ×2 (10:34→20:57)
[2018-09-25] MEDS: Ferrous Sulfate 325 MG TAB PO SCH ×2 (10:34→20:57)
[2018-09-25] MEDS: D5 1/4 NS 1,000 ML IV SCH (12:06)
--- NOTE | 2018-09-25 15:29 | PDOC.PN ---
- Subjective Encounter Start Date: 09/25/18 Encounter Start Time: 15:27 Subjective: awake this morning.daughter at bedside & feels that her face is puffy - Objective Resuscitation Status - Order Detail: 09/18/18 17:42 Resuscitation Status Routine Resuscitation Status: DNAR: NO Resuscitation Discussed with: Family and son PATRICIA Reviewed: Yes Vital Signs & Weight: Vital Signs (12 hours) Temp Pulse Resp BP BP Pulse Ox 09/25/18 12:00 98.5 F 99 18 146/88 H 09/25/18 10:33 103 H 156/93 H 09/25/18 08:00 98.6 F 103 H 20 156/93 H 95 09/25/18 04:00 99.2 F 101 H 19 148/82 H 94 L Weight Weight 142 lb 9 oz I&O: 09/24/18 09/25/18 09/26/18 06:59 06:59 06:59 Intake Total 1050 1750 840 Balance 1050 1750 840 Result Diagrams: 09/23/18 04:06 09/24/18 05:06 Additional Labs: Microbiology 09/19/18 08:50 Stool Stool Occult Blood (TJ) - Final 09/18/18 12:30 Venous blood - Right Hand Blood Culture - Final NO GROWTH IN 5 DAYS 09/18/18 12:30 Central Line - Left external jugular vein Blood Culture - Final NO GROWTH IN 5 DAYS 09/18/18 11:20 Stool - Pending Stool Occult Blood (TJ) - Final Laboratory Tests 09/18/18 09/18/18 09/19/18 Unknown Unknown 04:35 WBC 23.6 H Hgb 6.2 L Band Neuts % (Manual) 12 H Sodium 154 H Chloride 123 H 127 H* Creatinine 3.33 H 09/19/18 09/20/18 09/20/18 04:35 05:37 05:37 WBC 21.5 H 14.7 H Hgb 9.0 L Band Neuts % (Manual) 27 H 1 L Sodium 156 H Chloride 128 H* Creatinine 09/21/18 09/21/18 09/22/18 04:11 04:11 04:03 WBC 10.8 9.5 Hgb 8.9 L Band Neuts % (Manual) Sodium Chloride 126 H* Creatinine 2.75 H 09/22/18 09/23/18 09/23/18 04:03 04:06 04:06 WBC 9.5 Hgb 9.3 L Band Neuts % (Manual) Sodium 149 H 146 H Chloride 123 H 120 H Creatinine 2.41 H 09/24/18 05:06 WBC Hgb Band Neuts % (Manual) Sodium 143 Chloride 118 H Creatinine 2.16 H Phys Exam - Physical Examination excessive coughing while drinking ensure HEENT: PERRLA, moist MMs, sclera anicteric oral thrush Neck: no nodes, no JVD, supple, full ROM Respiratory: no wheezing, no rales, no rhonchi coarse breath sounds Cardiovascular: RRR, no significant murmur Gastrointestinal: soft, non-tender, no distention, positive bowel sounds Musculoskeletal: no edema, pulses present Neurological: moves all 4 limbs Psychiatric: normal affect Deviation from normal: lethargic Skin: no rash Dx/Plan (1) RONEL (acute kidney injury) Code(s): N17.9 - ACUTE KIDNEY FAILURE, UNSPECIFIED Status: Acute Comment: Avoid nephrotoxic meds and limit contrast exposure, serial creatinine, slow improvement but trending toward baseline, 1/2NS @ 50ml/h (2) Acute hypernatremia Code(s): E87.0 - HYPEROSMOLALITY AND HYPERNATREMIA Status: Acute Comment: Improved, encourage increased free-H2O intake (3) Oral thrush Code(s): B37.0 - CANDIDAL STOMATITIS Status: Acute Comment: Add Nystatin SSW (4) Atrial fibrillation with RVR Code(s): I48.91 - UNSPECIFIED ATRIAL FIBRILLATION Status: Acute Comment: Continue rate-control strategy, titrate Cardizem to clinical response, no anticoagulation due to GI bleed, recurrent anemia, continue Metoprolol 50mg BID (5) Neutrophilic leukocytosis Code(s): D72.9 - DISORDER OF WHITE BLOOD CELLS, UNSPECIFIED Status: Acute Comment: Etiology unclear, suspect stress demargination however will monitor for infectious etiology, no current infectious etiology identified, hold abx, resolved (6) Alzheimer's dementia Code(s): G30.9 - ALZHEIMER'S DISEASE, UNSPECIFIED; F02.80 - DEMENTIA IN OTH DISEASES CLASSD ELSWHR W/O BEHAVRL DISTURB Status: Chronic Comment: Advanced dementia, will return to [facility] upon d/c (7) Physical deconditioning Code(s): R53.81 - OTHER MALAISE Status: Chronic Comment: PT for mobilization (8) GI bleed Code(s): K92.2 - GASTROINTESTINAL HEMORRHAGE, UNSPECIFIED Status: Suspected Comment: Suspected GI source, s/p 2u PRBC's, serial H/H monitoring, GI consult appreciated.FOBT negative.No further Work up per GI needed (9) Acute blood loss anemia Code(s): D62 - ACUTE POSTHEMORRHAGIC ANEMIA Status: Acute Comment: See above , serial CBC - Plan plan discussed w/ family, PT/OT, respiratory therapy, out of bed/ambulate, DVT proph w/SCDs suspect significant aspiration,discussed risk w diet -: family do not want PEG but will discuss further.diet w risk for now per FOAM GUN OPERATOR -: increase mobilization -: change IVF to D5 1/4 NS.sodium better ,chloride still high -: ellie Dunbar in am back to [facility] for PT & FOAM GUN OPERATOR * . Review of Systems - Review of Systems Constitutional: weakness - Medications/Allergies Allergies/Adverse Reactions: Allergies Allergy/AdvReac Type Severity Reaction Status Date / Time No Known Drug Allergies Allergy Verified 09/18/18 17:58 Medications: Current Medications Acetaminophen (Tylenol) 1,000 mg PO Q6H PRN PRN Reason: Mild Pain (1-3) Alprazolam (Xanax) 0.5 mg PO TID PRN PRN Reason: Anxiety Last Admin: 09/24/18 01:06 Dose: 0.5 mg Diltiazem HCl (Cardizem Cd) 240 mg PO DAILY [facility] Last Admin: 09/25/18 10:33 Dose: 240 mg Ferrous Sulfate (Feosol) 325 mg PO BID [facility] Last Admin: 09/25/18 10:34 Dose: 325 mg Hydralazine HCl (Apresoline) 10 mg SLOW IVP Q4H PRN PRN Reason: SBP > 180 and HR < 70 Dextrose/Sodium Chloride (D5 1/4 Ns) 1,000 mls @ 50 mls/hr IV .Q20H [facility] Last Admin: 09/25/18 12:06 Dose: 1,000 mls Levothyroxine Sodium (Synthroid) 112 mcg PO 0600 [facility] Last Admin: 09/25/18 04:50 Dose: 112 mcg Metoprolol Tartrate (Lopressor) 50 mg PO BID [facility] Last Admin: 09/25/18 10:34 Dose: 50 mg Ondansetron HCl (Zofran Odt) 4 mg PO Q6H PRN PRN Reason: Nausea/Vomiting Ondansetron HCl (Zofran) 4 mg IVP Q6H PRN PRN Reason: Nausea/Vomiting Pantoprazole Sodium (Protonix) 40 mg PO DAILY [facility] Last Admin: 09/25/18 10:34 Dose: 40 mg Potassium Chloride (Klor-Con) 20 meq PO BID-[facility] Last Admin: 09/25/18 10:34 Dose: 20 meq Sodium Chloride (Flush - Normal Saline) 10 ml IVF Q12HR [facility] Last Admin: 09/25/18 10:35 Dose: Not Given Sodium Chloride (Flush - Normal Saline) 10 ml IVF PRN PRN PRN Reason: Saline Flush Last Admin: 09/24/18 14:01 Dose: 10 ml
--- NOTE | 2018-09-25 16:30 | PDOC.CTH ---
Cardiology Progress Note - Subjective The pt seen and examined. No overnight events. No cardiac complaints. She is very lethergic and does not follow any commands. Per RN, she is having dark/ black stool. - Objective Vital Signs Temp Pulse Resp BP BP Pulse Ox 09/25/18 12:00 98.5 F 99 18 146/88 H 09/25/18 10:33 103 H 156/93 H 09/25/18 08:00 98.6 F 103 H 20 156/93 H 95 Weight 142 lb 9 oz 09/24/18 09/25/18 09/26/18 06:59 06:59 06:59 Intake Total 1050 1750 840 Balance 1050 1750 840 - Physical Examination Lungs: other: (diminished at bases) Heart: other: (irregular) Abdomen: soft Extremities: other: (No edema) - Telemetry Telemetry Rhythm: AFib 100s - Labs Result Diagrams: 09/26/18 04:52 09/26/18 04:52 Troponin/CKMB CK-MB (CK-2) 5.3 ng/mL (0-6.6) 09/18/18 Unknown Troponin I 0.061 ng/mL (< 0.028) H 09/18/18 Unknown - Assessment/Plan 1. Afib with RVR - HR well controlled with Diltizaem 240mg qd with Metoprolol. Not on OACs due to hx of Anemia possible 2/2 GI bleed. She is having black stools per RN. 2. Anemia, multifactorial - stable 3. RONEL on CKD - improving. 4. Hypernatremia/Hyperchloremia - improving 5. Abnormal LFT's. - improving; cont. to monitor 6. Alzheimer's dementia 7. Dehydration - improving. 8. HTN - stable 9. Resuscitation Status: DNAR MAR reviewed * Echo on 09/22/2018 showed EF 45-50%, mild ERA, mod-severe MR, mild AR, mild- mod TR, and mild MN. * Pocketing food, but no PEG tube per family. Palliative care consult? Pt. seen and eval. by me. I agree with the A/P by the MACHINE TOOL ELECTRICIAN. Chest clear. IReg, No edema. Review of Systems - Review of Systems Constitutional: reports: see HPI
[2018-09-25] MEDS: Nystatin 500,000 UNITS/5 ML UDCUP SSW SCH ×2 (17:43→20:57)
[2018-09-25] MEDS: Acetaminophen 500 MG TAB PO PRN (21:15)
[2018-09-26] MEDS: Levothyroxine Sodium 112 MCG TAB PO SCH (05:38)
[2018-09-26] MEDS: D5 1/4 NS 1,000 ML IV SCH (05:38)
[2018-09-26 06:18] LABS: Anion Gap 15 mmol/L (10-20); BUN (Urea Nitrogen) 38 mg/dL (9.8-20.1); Calc. Creatinine Clearance 17 mL/min (70-130); Carbon Dioxide 12 mmol/L (23-31); Chloride 113 mmol/L (98-107); Estimated GFR-MDRD 19; Glucose 110 mg/dL (83-110); Potassium 4.7 mmol/L (3.5-5.1); Sodium 135 mmol/L (136-145)
[2018-09-26 07:00] LABS: Hemoglobin 9.6 g/dL (12.0-16.0); Mean Corpuscular Hemoglobin 30.9 pg (27.0-31.0); Mean Corpuscular Volume 99.6 fL (78.0-98.0); Mean Platelet Volume 9.4 fL (7.4-10.4); Platelet Count 211 thou/uL (130-400); RBC Distribution Width 15.7 % (11.5-14.5); White Blood Cell (WBC) Count 10.1 thou/uL (4.8-10.8)
[2018-09-26 07:11] LABS: #Eosinphils 0.1 thou/uL (0.0-0.7); #Lymphocytes 1.2 thou/uL (1.20-3.40); #Monocytes 0.8 thou/uL (0.11-0.59); #Neutrophils 7.9 thou/uL (1.40-6.50); %Basophils 0.5 % (0.0-1.0); %Eosinophils 1.3 % (0.0-10.0); %Lymphocytes 12.1 % (21.0-51.0); %Monocytes 8.3 % (0.0-10.0); %Neutrophils 77.9 % (42.0-75.0); MDiff Complete? YES; RBC Morphology 1
[2018-09-26] MEDS: Acetaminophen 500 MG TAB PO PRN (08:25)
[2018-09-26] MEDS: Metoprolol Tartrate 50 MG TAB PO SCH ×2 (08:25→22:06)
[2018-09-26] MEDS: Ferrous Sulfate 325 MG TAB PO SCH ×2 (08:25→22:05)
[2018-09-26] MEDS: Nystatin 500,000 UNITS/5 ML UDCUP SSW SCH ×4 (08:25→22:06)
--- NOTE | 2018-09-26 11:00 | RAD ---
SINGLE VIEW OF THE CHEST: Comparison: 09-18-18 History: Abdominal pain, chest pain. FINDINGS: Single view of the chest shows an enlarged but stable cardiomediastinal silhouette. There is a small right pleural effusion, unchanged, with adjacent atelectasis. IMPRESSION: Small right pleural effusion. POS: [facility]
[2018-09-26] MEDS ORDERED: Furosemide 40 MG/4 ML VIAL ONE ×2 (11:04→11:07)
[2018-09-26] MEDS ORDERED: Furosemide 100 MG/10 ML VIAL SLOW IVP SCH (11:45)
[2018-09-26 13:07] LABS: Actual Bicarbonate (HCO3a) 16.6 mEq/L (22-28); Base Excess (BEa) -6.3 mEq/L (-2.0 to +3.0); Calcium, Ionized 1.14 mmol/L (1.12-1.30); Hemoglobin (Hb) 9.9 g/dL (12.0-16.0); Potassium - ABG Lab 4.56 mmol/L (3.70-5.30); pH, Arterial 7.44 (7.35-7.45)
[2018-09-26 13:11] LABS: Puncture Site RRA
--- NOTE | 2018-09-26 13:34 | PDOC.PN ---
- Subjective Encounter Start Date: 09/26/18 Encounter Start Time: 11:25 -: non-verbal, old records requested/rev Pt seen and examined, chart reviewed in its entirety, this is my first visit with this patient follow up for RONEL, hypernateremia, chronic afib and thrush PT somnolent this AM, wheezing and hypoxic, called by nurses. CXR and Neb, ABG ordered ROS not obtainable - Objective Resuscitation Status - Order Detail: 09/18/18 17:42 Resuscitation Status Routine Resuscitation Status: DNAR: NO Resuscitation Discussed with: Family and son PATRICIA Reviewed: Yes Vital Signs & Weight: Vital Signs (12 hours) Temp Pulse Resp BP Pulse Ox 09/26/18 11:08 98.8 F 120 H 22 H 163/87 H 93 L 09/26/18 08:25 116 H 09/26/18 07:50 99.8 F H 116 H 20 143/91 H 96 09/26/18 04:00 98.3 F 105 H 22 H 134/87 93 L Weight Weight 150 lb 3 oz I&O: 09/25/18 09/26/18 09/27/18 06:59 06:59 06:59 Intake Total 1750 2563 Balance 1750 2563 Result Diagrams: 09/26/18 04:52 09/26/18 04:52 Radiology Reviewed by me: Yes EKG Reviewed by me: Yes Phys Exam - Physical Examination Constitutional: NAD HEENT: PERRLA, moist MMs, sclera anicteric, oral pharynx no lesions Neck: no nodes, no JVD, supple, full ROM Respiratory: no rales wheezing, prolonged expiration, upper giurgling Cardiovascular: no significant murmur, irregular Gastrointestinal: soft, non-tender, no distention, positive bowel sounds Musculoskeletal: edema present Neurological: non-focal Lymphatic: no nodes Skin: no rash, normal turgor, cap refill <2 seconds Dx/Plan (1) RONEL (acute kidney injury) Code(s): N17.9 - ACUTE KIDNEY FAILURE, UNSPECIFIED Status: Acute Comment: Avoid nephrotoxic meds and limit contrast exposure, serial creatinine, slow improvement but trending toward baseline, 1/2NS @ 50ml/h (2) Acute blood loss anemia Code(s): D62 - ACUTE POSTHEMORRHAGIC ANEMIA Status: Acute Comment: See above , serial CBC (3) Acute hypernatremia Code(s): E87.0 - HYPEROSMOLALITY AND HYPERNATREMIA Status: Acute Comment: Improved, encourage increased free-H2O intake (4) Atrial fibrillation with RVR Code(s): I48.91 - UNSPECIFIED ATRIAL FIBRILLATION Status: Acute Comment: Continue rate-control strategy, titrate Cardizem to clinical response, no anticoagulation due to GI bleed, recurrent anemia, continue Metoprolol 50mg BID (5) Neutrophilic leukocytosis Code(s): D72.9 - DISORDER OF WHITE BLOOD CELLS, UNSPECIFIED Status: Acute Comment: Etiology unclear, suspect stress demargination however will monitor for infectious etiology, no current infectious etiology identified, hold abx, resolved (6) Oral thrush Code(s): B37.0 - CANDIDAL STOMATITIS Status: Acute Comment: Add Nystatin SSW (7) Alzheimer's dementia Code(s): G30.9 - ALZHEIMER'S DISEASE, UNSPECIFIED; F02.80 - DEMENTIA IN OTH DISEASES CLASSD ELSWHR W/O BEHAVRL DISTURB Status: Chronic Comment: Advanced dementia, will return to [facility] upon d/c (8) Physical deconditioning Code(s): R53.81 - OTHER MALAISE Status: Chronic Comment: PT for mobilization (9) GI bleed Code(s): K92.2 - GASTROINTESTINAL HEMORRHAGE, UNSPECIFIED Status: Suspected Comment: Suspected GI source, s/p 2u PRBC's, serial H/H monitoring, GI consult appreciated.FOBT negative.No further Work up per GI needed (10) Atrial fibrillation Code(s): I48.91 - UNSPECIFIED ATRIAL FIBRILLATION Status: Acute (11) Cerebrovascular accident (stroke) Code(s): I63.9 - CEREBRAL INFARCTION, UNSPECIFIED Status: Acute (12) Labile hypertension Code(s): I10 - ESSENTIAL (PRIMARY) HYPERTENSION Status: Acute - Plan * .
--- NOTE | 2018-09-26 15:42 | PQF ---
CLINICAL DOCUMENTATION IMPROVEMENT CLARIFICATION FORM: ICD-10 Updated PLEASE DO AN ADDENDUM TO THE PROGRESS NOTE WITH ANY DOCUMENTATION UPDATES OR ADDITIONS AND CARRY THROUGH TO DC SUMMARY. THANK YOU. DATE: 09/29/18 ATTN: DR. ANNE Please exercise your independent, professional judgment in responding to the clarification form. Clinical indicators are provided on the bottom of this form for your review Please check appropriate box(s): [ x ] Encephalopathy: Type: [ ] Acute [ x ] Subacute [ ] Chronic Etiology: [ ] Hypertensive [ x ] Metabolic [ ] Toxic [ ] Hepatic with Coma [ ] Hepatic w/o Coma [ ] Hypoxic [ ] Septic [ ] Drug induced: [ ] Unspecified [ ] in the setting of underlying dementia [ ] Other (please specify) [ ] Transient Alteration of Awareness [ ] Other diagnosis [ ] Unable to determine In addition, please specify: Present on Admission (POA): [ ] Yes [ ] No [ x ] Unable to determine For continuity of documentation, please document condition throughout progress notes and discharge summary. Thank You. CLINICAL INDICATORS - SIGNS / SYMPTOMS / LABS PROGRESS NOTE (SOUND) 09/19: "FOLLOW UP FOR ALTERED MENTAL STATUS" 09/20: "REMAINS CONFUSED" PROGRESS NOTE 09/20, 09/21: "ENCEPHALOPATHY" PROGRESS NOTE 09/26: "PT IS SOMNOLENT, WON'T FOLLOW COMMANDS..." RISKS: H/O CVA (PROGRESS NOTE 09/26) ALZHEIMER'S DISEASE TREATMENT: CARDIAC MONITORING XANAX PRN AGITATION MAXIMUM NURSING ASSISTANCE (PER NURSING ASSESSMENT 09/26) SERIAL LABS BLOOD CULTURES (This form is maintained as a part of the permanent medical record) 2014 [employer] All Rights Reserved [email or web address] Office: [phone] [facility]
--- NOTE | 2018-09-26 15:56 | PQF ---
CLINICAL DOCUMENTATION IMPROVEMENT CLARIFICATION FORM: ICD-10 Updated PLEASE DO AN ADDENDUM TO THE PROGRESS NOTE WITH ANY DOCUMENTATION UPDATES OR ADDITIONS AND CARRY THROUGH TO DC SUMMARY. THANK YOU. DATE: 09/30/18 ATTN: DR. CLARK Please exercise your independent, professional judgment in responding to the clarification form. Clinical indicators are provided on the bottom of this form for your review Please check appropriate box(s) to clarify if the following diagnosis has been ruled in or ruled out: "SEPSIS" [ ] Ruled in diagnosis [ ] Continue to treat [ ] Resolved [ ] Ruled out diagnosis [ ] Cannot rule out diagnosis [ ] Other diagnosis [ x ] Unable to determine In addition, please specify: Present on Admission (POA): [ ] Yes [ ] No [ x ] Unable to determine For continuity of documentation, please document condition throughout progress notes and discharge summary. Thank You. CLINICAL INDICATORS - SIGNS / SYMPTOMS / LABS PROGRESS NOTE 09/21 - 09/23 (PULMONARY) : "SEPSIS, SEPSIS SYNDROME" WBC 23.6 (ADMISSION) BANDS 12 PULSE 100S-121 RR 22-24 TEMP 96.2 / 96.3 / 97.0 WORSENING LETHARGY (ER ER NOTE) RISKS: PROGRESS NOTE 09/22 (SOUND): "NEUTROPHILIC LEUKOCYTOSIS, SUSPECT STRESS DEMARGINATION, HOWEVER WILL MONITOR FOR INFECTIOUS ETIOLOGY" RONEL HYPERNATREMIA GI BLEED PHYSICAL DECONDITIONING ADVANCED AGE [facility] RESIDENT TREATMENT: IV FLUIDS (ER) BLOOD CULTURES CARDIAC MONITORING UA (This form is maintained as a part of the permanent medical record) 2014 [employer]. All Rights Reserved BITA [email or web address] Office: [phone] [facility]
[2018-09-26] MEDS ORDERED: Diltiazem HCl 125 MG, Admixture Fee 1 EACH in Sodium Chloride 0.9% 100 ML IVPB SCH (16:00)
--- NOTE | 2018-09-26 17:46 | PRG ---
DATE OF SERVICE: 09/26/2018 SUBJECTIVE: The patient is well-known to us, an 88-year-old female, who apparently wants to be discharged when she developed temperature 100.1, pulse 121, respiratory rate 24, and saturations low. Audible rhonchi and crackles. X-ray shows cardiomegaly, infiltrate bilaterally with small pleural effusion. She appeared to be somewhat confused, otherwise chest extensive rhonchi and crackles. Cardiac, normal S1 and S2. No gallops. Abdomen soft. LABORATORY STUDIES: White count 10,000 and H and H 9 and 30, and platelet count 211. Lytes are normal. A pO2 of 58 and, pCO2 of 26.44 on 2 L. BUN and creatinine are 38 and 2.46. IMPRESSION AND PLAN: 1. Respiratory failure, congestive heart failure. 2. Renal failure with the advanced age and dementia. I agree with present management, comfort care. Diuretics. Avoid excessive hydration. Neb treatments and supportive care. We will follow. Job ID: [id number]
--- NOTE | 2018-09-26 17:55 | PDOC.CTH ---
Cardiology Progress Note - Subjective The pt seen and examined. No overnight events. She cannot follow commands or answer any questions. - Objective Vital Signs Temp Pulse Resp BP Pulse Ox 09/26/18 15:40 91 L 09/26/18 15:39 121 H 24 H 91 L 09/26/18 15:22 100.1 F H 134 H 22 H 195/97 H 94 L 09/26/18 11:08 98.8 F 120 H 22 H 163/87 H 93 L 09/26/18 08:25 116 H 09/26/18 07:50 99.8 F H 116 H 20 143/91 H 96 Weight 150 lb 3 oz 09/25/18 09/26/18 09/27/18 06:59 06:59 06:59 Intake Total 1750 2563 275.9 Output Total 1450 Balance 1750 2563 -1174.1 - Physical Examination Lungs: other: (crackles and coarses ) Heart: other: (irregular) Abdomen: soft Extremities: other: (1+ pitting BLE edema) - Telemetry Telemetry Rhythm: AFib - Labs Result Diagrams: 09/26/18 04:52 09/26/18 04:52 Troponin/CKMB CK-MB (CK-2) 5.3 ng/mL (0-6.6) 09/18/18 Unknown Troponin I 0.061 ng/mL (< 0.028) H 09/18/18 Unknown - Assessment/Plan 1. Afib with RVR - On Cardizem 240mg qd with Metoprolol. Not on OACs due to hx of Anemia possible 2/2 GI bleed. She is having black stools per RN. 2. Anemia, multifactorial - stable 3. RONEL on CKD - worsening. 4. Hypernatremia/Hyperchloremia - improving 5. Abnormal LFT's. - improving; cont. to monitor 6. Alzheimer's dementia 7. Dehydration - improving. 8. Labile HTN - stable 9. Resuscitation Status: DNAR 10. possible aspiration PNA? MAR reviewed * Echo on 09/22/2018 showed EF 45-50%, mild ERA, mod-severe MR, mild AR, mild- mod TR, and mild [place]. * Pocketing food, but no PEG tube per family. Palliative care consult? Pt. seen and eval. by me. I agree with the A/P by the OVENS SUPERVISOR. The pt. is luis e morton more lethargic. I have little more to offer. I will continue to follow. Review of Systems - Review of Systems Constitutional: reports: see HPI EENTM: reports: see HPI Respiratory: reports: see HPI
[2018-09-26] MEDS: Budesonide 0.5 MG/2 ML NEB INH SCH (19:00)
[2018-09-26] MEDS: Acetaminophen 1,000 MG in Premix Bag 1 BAG IVPB PRN (22:28)
[2018-09-27] MEDS: Levothyroxine Sodium 112 MCG TAB PO SCH (06:26)
[2018-09-27] MEDS: Budesonide 0.5 MG/2 ML NEB INH SCH ×2 (06:51→18:52)
[2018-09-27] MEDS: Ferrous Sulfate 325 MG TAB PO SCH ×2 (08:48→21:40)
[2018-09-27] MEDS: Metoprolol Tartrate 50 MG TAB PO SCH ×2 (08:48→21:41)
[2018-09-27] MEDS: Nystatin 500,000 UNITS/5 ML UDCUP SSW SCH ×4 (08:48→21:41)
[2018-09-27 11:39] LABS: #Eosinphils 0.3 thou/uL (0.0-0.7); #Lymphocytes 0.6 thou/uL (1.20-3.40); #Monocytes 0.8 thou/uL (0.11-0.59); #Neutrophils 10.2 thou/uL (1.40-6.50); %Basophils 0.2 % (0.0-1.0); %Eosinophils 2.2 % (0.0-10.0); %Lymphocytes 4.9 % (21.0-51.0); %Monocytes 6.7 % (0.0-10.0); Hemoglobin 8.8 g/dL (12.0-16.0); Mean Corpuscular HGB CONC 31.7 g/dL (32.0-36.0); Mean Corpuscular Hemoglobin 30.2 pg (27.0-31.0); Mean Corpuscular Volume 95.3 fL (78.0-98.0); Mean Platelet Volume 9.4 fL (7.4-10.4); Platelet Count 202 thou/uL (130-400); RBC Distribution Width 15.3 % (11.5-14.5); Red Blood Cell (RBC) Count 2.92 mill/uL (4.20-5.40); White Blood Cell (WBC) Count 11.8 thou/uL (4.8-10.8)
[2018-09-27 12:03] LABS: Anion Gap 14 mmol/L (10-20); BUN (Urea Nitrogen) 39 mg/dL (9.8-20.1); Calc. Creatinine Clearance 17 mL/min (70-130); Calcium 8.4 mg/dL (7.8-10.44); Carbon Dioxide 16 mmol/L (23-31); Chloride 113 mmol/L (98-107); Estimated GFR-MDRD 18; Glucose 124 mg/dL (83-110); Magnesium 2.1 mg/dL (1.6-2.6); Potassium 4.8 mmol/L (3.5-5.1); Sodium 138 mmol/L (136-145)
--- NOTE | 2018-09-27 12:33 | PDOC.PN ---
- Subjective Encounter Start Date: 09/27/18 Encounter Start Time: 11:25 -: non-verbal follow up for Afib with RVR, RONEL, dehydrations. HR elevated, pt still not waking up, 100.2 temp today, 100.[address] Rangel. No Chills or rigors, no vomiting or diarrhea ROS no obtianable - Objective Resuscitation Status - Order Detail: 09/18/18 17:42 Resuscitation Status Routine Resuscitation Status: DNAR: NO Resuscitation Discussed with: Family and son PATRICIA Reviewed: Yes Vital Signs & Weight: Vital Signs (12 hours) Temp Pulse Resp BP Pulse Ox 09/27/18 11:45 99.7 F H 94 19 145/82 H 91 L 09/27/18 08:48 130 H 94 L 09/27/18 08:00 100.2 F H 130 H 24 H 168/79 H 09/27/18 06:51 117 H 20 09/27/18 04:00 98.5 F 145 H 21 H 121/60 94 L 09/27/18 01:57 118 H 24 H 97 Weight Weight 148 lb 6 oz I&O: 09/26/18 09/27/18 09/28/18 06:59 06:59 06:59 Intake Total 2563 480.9 Output Total 3000 Balance 2563 -2519.1 Result Diagrams: 09/27/18 11:27 09/27/18 11:27 Phys Exam - Physical Examination Constitutional: NAD HEENT: PERRLA, sclera anicteric, oral pharynx no lesions Neck: no nodes, no JVD, supple, full ROM upper gurgling, less wheezes, shallow respirations, slightly tachypneic Cardiovascular: no significant murmur, irregular 80-100 BPM Gastrointestinal: soft, non-tender, no distention, positive bowel sounds Musculoskeletal: edema present Neurological: moves all 4 limbs Lymphatic: no nodes Skin: no rash, normal turgor, cap refill <2 seconds Dx/Plan (1) RONEL (acute kidney injury) Code(s): N17.9 - ACUTE KIDNEY FAILURE, UNSPECIFIED Status: Acute Comment: Avoid nephrotoxic meds and limit contrast exposure, serial creatinine, slow improvement but trending toward baseline, 1/2NS @ 50ml/h (2) Acute blood loss anemia Code(s): D62 - ACUTE POSTHEMORRHAGIC ANEMIA Status: Acute Comment: See above , serial CBC, trending down, bloody suctioning form O-P (3) Acute hypernatremia Code(s): E87.0 - HYPEROSMOLALITY AND HYPERNATREMIA Status: Acute Comment: Improved, encourage increased free-H2O intake (4) Atrial fibrillation with RVR Code(s): I48.91 - UNSPECIFIED ATRIAL FIBRILLATION Status: Acute Comment: Continue rate-control strategy, titrate Cardizem to clinical response, no anticoagulation due to GI bleed, recurrent anemia, continue Metoprolol 50mg BID , but not taking po at present (5) Neutrophilic leukocytosis Code(s): D72.9 - DISORDER OF WHITE BLOOD CELLS, UNSPECIFIED Status: Acute Comment: Etiology unclear, suspect stress demargination however will monitor for infectious etiology, no current infectious etiology identified, hold abx, resolved (6) Oral thrush Code(s): B37.0 - CANDIDAL STOMATITIS Status: Acute Comment: Add Nystatin SSW (7) Alzheimer's dementia Code(s): G30.9 - ALZHEIMER'S DISEASE, UNSPECIFIED; F02.80 - DEMENTIA IN OTH DISEASES CLASSD ELSWHR W/O BEHAVRL DISTURB Status: Chronic Comment: Advanced dementia, will return to [facility] upon d/c (8) Physical deconditioning Code(s): R53.81 - OTHER MALAISE Status: Chronic Comment: PT for mobilization (9) GI bleed Code(s): K92.2 - GASTROINTESTINAL HEMORRHAGE, UNSPECIFIED Status: Suspected Comment: Suspected GI source, s/p 2u PRBC's, serial H/H monitoring, GI consult appreciated.FOBT negative.No further Work up per GI needed (10) Atrial fibrillation Code(s): I48.91 - UNSPECIFIED ATRIAL FIBRILLATION Status: Acute Qualifiers: Atrial fibrillation type: chronic Qualified Code(s): I48.2 - Chronic atrial fibrillation (11) Cerebrovascular accident (stroke) Code(s): I63.9 - CEREBRAL INFARCTION, UNSPECIFIED Status: Acute Qualifiers: CVA mechanism: unspecified Qualified Code(s): I63.9 - Cerebral infarction, unspecified (12) Labile hypertension Code(s): I10 - ESSENTIAL (PRIMARY) HYPERTENSION Status: Chronic - Plan cont current plan of care, social work professor * . possible infection, still start clinda and cefepime for now. try to control HR and BP better. extremely poor prognosis
[2018-09-27] MEDS ORDERED: Clindamycin/D5W 300 MG/50 ML BAG IVPB SCH (12:45)
--- NOTE | 2018-09-27 12:54 | PRG ---
DATE OF SERVICE: 09/27/2018 SUBJECTIVE: This morning, she is more responsive. OBJECTIVE: VITAL SIGNS: Saturations are somewhat improved like 93% to 94%, respiratory rate 24, temperature 100.2, and blood pressure 168/79. CHEST: Bilateral rhonchi and crackles. CARDIAC: Normal S1 and S2. No gallops. ABDOMEN: No masses. IMPRESSION: Respiratory failure, congestive heart failure, recurrent aspiration, advanced age, dementia, and renal failure. PLAN: Continue supportive care and PT. We will follow. Job ID: [id number]
[2018-09-27] MEDS: Diltiazem HCl 125 MG, Admixture Fee 1 EACH in Sodium Chloride 0.9% 100 ML IVPB SCH (13:30)
[2018-09-27] MEDS ORDERED: D5W IVPB SCH (14:00)
[2018-09-27] MEDS ORDERED: ADMIXTURE FEE CHEMO IVPB SCH (14:00)
[2018-09-27] MEDS ORDERED: CLINDAMYCIN IVPB SCH (14:00)
--- NOTE | 2018-09-27 14:08 | PDOC.CTH ---
Cardiology Progress Note - Subjective The pt seen and examined. Still very lethargic. Temp was up to 103 last night. No ROS obtained. - Objective Vital Signs Temp Pulse Pulse Pulse Resp BP BP 09/27/18 11:45 99.7 F H 94 19 09/27/18 10:19 102 H 97 140/82 152/80 H 09/27/18 08:48 130 H 09/27/18 08:00 100.2 F H 130 H 24 H 09/27/18 06:51 117 H 20 09/27/18 04:00 98.5 F 145 H 21 H BP Pulse Ox 09/27/18 11:45 145/82 H 91 L 09/27/18 10:19 09/27/18 08:48 94 L 09/27/18 08:00 168/79 H 09/27/18 06:51 09/27/18 04:00 121/60 94 L Weight 148 lb 6 oz 09/26/18 09/27/18 09/28/18 06:59 06:59 06:59 Intake Total 2563 480.9 Output Total 3000 Balance 2563 -2519.1 - Physical Examination General/Neuro: other: (confused) Lungs: other: (coarses ) Heart: other: (irregular) Abdomen: soft Extremities: other: (no edema) - Telemetry Telemetry Rhythm: Afib 90-100s - Labs Result Diagrams: 09/28/18 04:21 09/28/18 04:21 Troponin/CKMB CK-MB (CK-2) 5.3 ng/mL (0-6.6) 09/18/18 Unknown Troponin I 0.061 ng/mL (< 0.028) H 09/18/18 Unknown - Assessment/Plan 1. Afib with RVR - On Cardizem 240mg qd with Metoprolol. Not on OACs due to hx of Anemia possible 2/2 GI bleed. She is having black stools per RN. 2. Anemia, multifactorial - stable 3. RONEL on CKD - worsening. 4. Hypernatremia/Hyperchloremia - improving 5. Abnormal LFT's. - improving; cont. to monitor 6. Alzheimer's dementia 7. Dehydration - improving. 8. Labile HTN - stable 9. Resuscitation Status: DNAR 10. possible aspiration PNA? MAR reviewed * Echo on 09/22/2018 showed EF 45-50%, mild ERA, mod-severe MR, mild AR, mild- mod TR, and mild MS. * Pocketing food, but no PEG tube per family. Palliative care consult? Pt. seen and eval. by me. I agree with the A/P by the NURSE FIRST AID. Poor prognosis. Review of Systems - Review of Systems Constitutional: reports: see HPI EENTM: reports: see HPI Respiratory: reports: see HPI Cardiac (ROS): reports: see HPI ABD/GI: reports: see HPI : reports: see HPI
[2018-09-27] MEDS: Cefepime 1 GM in Sodium Chloride 0.9% 100 ML IVPB SCH (14:49)
[2018-09-27] MEDS ORDERED: Clindamycin/D5W 600 MG in Premix Bag 1 BAG IVPB SCH (16:00)
[2018-09-27] MEDS: Clindamycin/D5W 600 MG in Premix Bag 1 BAG IVPB SCH (21:40)
[2018-09-27] MEDS: Acetaminophen 1,000 MG in Premix Bag 1 BAG IVPB PRN (21:50)
[2018-09-28] MEDS: Diltiazem HCl 125 MG, Admixture Fee 1 EACH in Sodium Chloride 0.9% 100 ML IVPB SCH ×2 (03:44→13:58)
[2018-09-28 04:53] LABS: #Eosinphils 0.1 thou/uL (0.0-0.7); #Lymphocytes 0.8 thou/uL (1.20-3.40); #Monocytes 0.7 thou/uL (0.11-0.59); #Neutrophils 9.7 thou/uL (1.40-6.50); %Basophils 0.1 % (0.0-1.0); %Eosinophils 1.1 % (0.0-10.0); %Lymphocytes 6.7 % (21.0-51.0); %Monocytes 6.1 % (0.0-10.0); Hemoglobin 7.8 g/dL (12.0-16.0); Mean Corpuscular HGB CONC 32.4 g/dL (32.0-36.0); Mean Corpuscular Hemoglobin 31.4 pg (27.0-31.0); Mean Corpuscular Volume 96.7 fL (78.0-98.0); Mean Platelet Volume 9.5 fL (7.4-10.4); Platelet Count 163 thou/uL (130-400); RBC Distribution Width 15.2 % (11.5-14.5); Red Blood Cell (RBC) Count 2.49 mill/uL (4.20-5.40); White Blood Cell (WBC) Count 11.3 thou/uL (4.8-10.8)
[2018-09-28 05:05] LABS: Anion Gap 13 mmol/L (10-20); BUN (Urea Nitrogen) 46 mg/dL (9.8-20.1); Calc. Creatinine Clearance 15 mL/min (70-130); Calcium 7.9 mg/dL (7.8-10.44); Carbon Dioxide 17 mmol/L (23-31); Chloride 113 mmol/L (98-107); Estimated GFR-MDRD 16; Glucose 130 mg/dL (83-110); Magnesium 2.1 mg/dL (1.6-2.6); Potassium 4.3 mmol/L (3.5-5.1); Sodium 139 mmol/L (136-145)
[2018-09-28] MEDS: Levothyroxine Sodium 112 MCG TAB PO SCH (05:54)
[2018-09-28] MEDS: Clindamycin/D5W 600 MG in Premix Bag 1 BAG IVPB SCH ×4 (05:55→21:35)
[2018-09-28] MEDS: Budesonide 0.5 MG/2 ML NEB INH SCH ×2 (07:56→19:03)
[2018-09-28] MEDS: Nystatin 500,000 UNITS/5 ML UDCUP SSW SCH ×4 (08:30→21:17)
[2018-09-28] MEDS: Metoprolol Tartrate 50 MG TAB PO SCH ×2 (08:30→21:17)
[2018-09-28] MEDS: Ferrous Sulfate 325 MG TAB PO SCH (09:24)
[2018-09-28] MEDS: Pantoprazole 40 MG GRANULES PACKET PO SCH (09:38)
--- NOTE | 2018-09-28 11:27 | PRG ---
DATE OF SERVICE: 09/28/2018 SUBJECTIVE: This morning remains encephalopathic. OBJECTIVE: VITAL SIGNS: Temperature of 98, pulse 80, respiratory rate 20, blood pressure 120/60, sats are on 50% Ventimask 97. CHEST: Extensive rhonchi and crackles. CARDIAC: Sinus tach. ABDOMEN: Soft. LABORATORY STUDIES: Creatinine is 2.8. White count 11,000, H and H is 7 and 24. IMPRESSION: Recurrent aspiration congestive heart failure, advanced age. PLAN: Unfortunate situation. Continue supportive care. Eventually placement. She is a DNR. Job ID: [id number]
[2018-09-28 12:19] VITALS: BMI 24.7
--- NOTE | 2018-09-28 12:24 | PDOC.PN ---
- Subjective Encounter Start Date: 09/28/18 Encounter Start Time: 12:23 Ma. Becerril was seen today in follow-up of Atrial fibrillation and RONEL. She appears extremely weak. She does not have any complaints. - Objective Resuscitation Status - Order Detail: 09/18/18 17:42 Resuscitation Status Routine Resuscitation Status: DNAR: NO Resuscitation Discussed with: Family and son PATRICIA Reviewed: Yes Vital Signs & Weight: Vital Signs (12 hours) Temp Pulse Resp BP Pulse Ox 09/28/18 11:33 97.6 F 72 20 121/62 92 L 09/28/18 10:47 88 24 H 88 L 09/28/18 08:29 107 H 09/28/18 07:55 87 L 09/28/18 07:53 87 20 87 L 09/28/18 07:17 98 F 86 18 120/60 97 09/28/18 04:00 97.3 F L 101 H 20 128/58 L 95 09/28/18 02:44 98 24 H 96 Weight Admit Weight 138 lb 14.259 oz Weight 144 lb 8 oz I&O: 09/27/18 09/28/18 09/29/18 06:59 06:59 06:59 Intake Total 480.9 707.6 Output Total 3000 725 Balance -2519.1 -17.4 Result Diagrams: 09/28/18 04:21 09/28/18 04:21 Phys Exam - Physical Examination HEENT: PERRLA Respiratory: wheezing present + bilateral wheezing and rhonchi Cardiovascular: RRR, no significant murmur, no rub Gastrointestinal: soft, non-tender, no distention, positive bowel sounds Musculoskeletal: no edema, pulses present Dx/Plan (1) RONEL (acute kidney injury) Code(s): N17.9 - ACUTE KIDNEY FAILURE, UNSPECIFIED Status: Acute Comment: Avoid nephrotoxic meds and limit contrast exposure, serial creatinine, slow improvement but trending toward baseline, 1/2NS @ 50ml/h (2) Atrial fibrillation with RVR Code(s): I48.91 - UNSPECIFIED ATRIAL FIBRILLATION Status: Acute Comment: Continue rate-control strategy, titrate Cardizem to clinical response, no anticoagulation due to GI bleed, recurrent anemia, continue Metoprolol 50mg BID , but not taking po at present (3) Alzheimer's dementia Code(s): G30.9 - ALZHEIMER'S DISEASE, UNSPECIFIED; F02.80 - DEMENTIA IN OTH DISEASES CLASSD ELSWHR W/O BEHAVRL DISTURB Status: Chronic Comment: Advanced dementia, will return to [facility] upon d/c (4) Physical deconditioning Code(s): R53.81 - OTHER MALAISE Status: Chronic Comment: PT for mobilization - Plan * AFIB with RVR- patient continues on a Cardizem drip * Chronic combined systolic and diastolic heart failure- she may be slightly volume overloaded- will check a CXR- * ? sepsis- fever, and elevated WBC count- she is on empiric Clindamycin and Cefepime- all cultures are negative so far * HTN- blood pressure is stable * Acute o chronic kidney disease- slightly worse .
[2018-09-28] MEDS: Cefepime 1 GM in Sodium Chloride 0.9% 100 ML IVPB SCH (13:11)
--- NOTE | 2018-09-28 13:52 | PDOC.CTH ---
Cardiology Progress Note - Subjective The pt seen and examined. No overnight events. No following to any commands. - Objective Vital Signs Temp Pulse Resp BP Pulse Ox 09/28/18 11:33 97.6 F 72 20 121/62 92 L 09/28/18 10:47 88 24 H 88 L 09/28/18 08:29 107 H 09/28/18 07:55 87 L 09/28/18 07:53 87 20 87 L 09/28/18 07:17 98 F 86 18 120/60 97 09/28/18 04:00 97.3 F L 101 H 20 128/58 L 95 09/28/18 02:44 98 24 H 96 Admit Weight 138 lb 14.259 oz Weight 144 lb 8 oz 09/27/18 09/28/18 09/29/18 06:59 06:59 06:59 Intake Total 480.9 707.6 Output Total 3000 725 Balance -2519.1 -17.4 - Physical Examination Lungs: other: (very coarses and diminished at bases) Heart: other: (irregular) Abdomen: soft Extremities: other: (No edema) - Telemetry Telemetry Rhythm: Afib 70-90s - Labs Result Diagrams: 09/28/18 04:21 09/28/18 04:21 Troponin/CKMB CK-MB (CK-2) 5.3 ng/mL (0-6.6) 09/18/18 Unknown Troponin I 0.061 ng/mL (< 0.028) H 09/18/18 Unknown - Assessment/Plan 1. Afib with RVR - On Cardizem 10mg/h and Metoprolol 50mg BID. Not on OACs due to hx of Anemia possible 2/2 GI bleed. She is having black stools per RN. 2. Anemia, multifactorial - stable 3. RONEL on CKD - worsening. 4. Hypernatremia/Hyperchloremia - improving 5. Abnormal LFT's. - improving; cont. to monitor 6. Alzheimer's dementia 7. Dehydration - improving. 8. Labile HTN - stable 9. Resuscitation Status: DNAR 10. possible aspiration PNA? MAR reviewed * Echo on 09/22/2018 showed EF 45-50%, mild ERA, mod-severe MR, mild AR, mild- mod TR, and mild WI. * Pocketing food, but no PEG tube per family. Palliative care consult? Pt. seen and eval. by me. I agree with the A/P by the BUS MATRON.Pt. with resp. distress today and transferred in IMCU. poor prognosis. Review of Systems - Review of Systems Constitutional: reports: see HPI
[2018-09-28] MEDS ORDERED: Furosemide 40 MG/4 ML VIAL ONE (14:11)
--- NOTE | 2018-09-28 14:18 | RAD ---
PORTABLE CHEST: Indication: Chest congestion. Comparison: 09-26-18 FINDINGS/IMPRESSION: There are bilateral interstitial and hazy alveolar infiltrates which are more extensive than on the exam. Small bilateral effusions again noted. There may be a component of vascular congestion an d edema superimposed on inflammatory infiltrates. POS: [facility]
--- NOTE | 2018-09-28 14:49 | PDOC.EVN ---
Event Note - Event Note Event Note: Called to see patient as a result of a code green. She has become tachyneic, and hypoxic. CXR demonstrates either worsening of pneumonia, or pneumonia with super imposed pulmonary edema. Will give Lasix 40mg, and place patient on Bipap. She will be moved to the IMCU.
[2018-09-28] MEDS ORDERED: Furosemide 40 MG/4 ML VIAL SLOW IVP SCH (15:00)
[2018-09-28] MEDS ORDERED: Lorazepam 2 MG/ML VIAL SLOW IVP PRN (16:50)
[2018-09-28 17:25] LABS: Actual Bicarbonate (HCO3a) 14.4 mEq/L (22-28); Analyzer IN Cardio OR; Base Excess (BEa) -9.9 mEq/L (-2.0 to +3.0); CO2 Tension 26.7 mmHg (35.0-45.0); Calcium, Ionized 1.14 mmol/L (1.12-1.30); Carboxyhemoglobin (COHb) 0.6 gm% (0.0-3.0); Hemoglobin (Hb) 9.7 g/dL (12.0-16.0); Potassium - ABG Lab 5.34 mmol/L (3.70-5.30); pH, Arterial 7.35 (7.35-7.45)
[2018-09-28 17:26] LABS: ALV-art Gradient 274.825 (0-20); O2 Tension (PaO2) 48.3 mmHg (> 60.0); Puncture Site RR
[2018-09-29 05:06] LABS: Anion Gap 16 mmol/L (10-20); BUN (Urea Nitrogen) 61 mg/dL (9.8-20.1); Calc. Creatinine Clearance 11 mL/min (70-130); Calcium 8.2 mg/dL (7.8-10.44); Carbon Dioxide 17 mmol/L (23-31); Chloride 114 mmol/L (98-107); Estimated GFR-MDRD 12; Glucose 144 mg/dL (83-110); Potassium 5.4 mmol/L (3.5-5.1); Sodium 142 mmol/L (136-145)
[2018-09-29 05:10] LABS: Band 42 % (5-11); Hemoglobin 7.9 g/dL (12.0-16.0); Lymphocytes 3 % (21-51); MDiff Complete? YES; Mean Corpuscular HGB CONC 31.6 g/dL (32.0-36.0); Mean Corpuscular Hemoglobin 30.4 pg (27.0-31.0); Mean Corpuscular Volume 96.3 fL (78.0-98.0); Mean Platelet Volume 9.4 fL (7.4-10.4); Monocytes 2 % (0-10); Neutrophil 53 % (42-75); Platelet Count 188 thou/uL (130-400); RBC Distribution Width 15.4 % (11.5-14.5); Red Blood Cell (RBC) Count 2.59 mill/uL (4.20-5.40); White Blood Cell (WBC) Count 18.9 thou/uL (4.8-10.8)
[2018-09-29] MEDS: Levothyroxine Sodium 112 MCG TAB PO SCH (05:27)
[2018-09-29] MEDS: Clindamycin/D5W 600 MG in Premix Bag 1 BAG IVPB SCH ×3 (05:27→21:00)
[2018-09-29] MEDS: Pantoprazole 40 MG GRANULES PACKET PO SCH (07:19)
[2018-09-29] MEDS: Metoprolol Tartrate 50 MG TAB PO SCH ×2 (07:19→20:43)
[2018-09-29] MEDS: Nystatin 500,000 UNITS/5 ML UDCUP SSW SCH ×4 (07:19→20:43)
--- NOTE | 2018-09-29 07:29 | EKG ---
Test Reason : CODE GREEN Blood Pressure : / mmHG Vent. Rate : 067 BPM Atrial Rate : 040 BPM P-R Int : 000 ms QRS Dur : 086 ms QT Int : 438 ms P-R-T Axes : 000 042 059 degrees QTc Int : 462 ms Atrial fibrillation Low voltage QRS Abnormal ECG When compared with ECG of 18-SEP-2018 10:12, (Unconfirmed) Vent. rate has decreased BY [address] Blake ESCALONA ([id number]) on 09/29/2018 7:28:54 AM Referred By: NEHAL Confirmed By:DR. Blake ESCALONA
[2018-09-29] MEDS: Budesonide 0.5 MG/2 ML NEB INH SCH ×2 (08:19→18:26)
--- NOTE | 2018-09-29 09:49 | PRG ---
DATE OF SERVICE: 09/29/2018 SUBJECTIVE: This morning, she is awake, little bit more responsive. Still having difficulty breathing off the BiPAP. OBJECTIVE: VITAL SIGNS: Saturations are 93% on a Venti mask, pulse 125, temperature 99, and respiratory rate 18. CHEST: Decreased breath sounds without any wheezing. CARDIAC: Normal S1 and S2. No gallops. ABDOMEN: No masses. LABORATORY DATA: White count 18,000, hemoglobin and hematocrit of 7 and 25, and platelet count 188. BUN and creatinine elevated at 61 and 3.7. IMPRESSION: 1. Respiratory failure. 2. Congestive heart failure. 3. Advanced age. 4. Dementia. 5. Aspiration. PLAN: I spoke to the patient's family at length yesterday regarding no further BiPAP or CPAP. Comfort care. Discontinue Ativan. Antibiotics as tolerated. Hold diuretics at this stage. She is clearly azotemic. Job ID: [id number]
[2018-09-29] MEDS ORDERED: Digoxin 0.5 MG/2 ML AMP ONE (16:33)
[2018-09-29] MEDS: Cefepime 1 GM in Sodium Chloride 0.9% 100 ML IVPB SCH (16:37)
[2018-09-29] MEDS ORDERED: Digoxin 0.5 MG/2 ML AMP SLOW IVP SCH (16:45)
[2018-09-29] MEDS: Digoxin 0.5 MG/2 ML AMP SLOW IVP SCH (22:40)
[2018-09-30] MEDS: Digoxin 0.5 MG/2 ML AMP SLOW IVP SCH ×2 (04:37→10:53)
[2018-09-30] MEDS: Clindamycin/D5W 600 MG in Premix Bag 1 BAG IVPB SCH (05:11)
[2018-09-30] MEDS: Levothyroxine Sodium 112 MCG TAB PO SCH (05:13)
[2018-09-30] MEDS: Budesonide 0.5 MG/2 ML NEB INH SCH (07:00)
[2018-09-30] MEDS: Metoprolol Tartrate 50 MG TAB PO SCH (08:13)
[2018-09-30] MEDS: Pantoprazole 40 MG GRANULES PACKET PO SCH (08:13)
[2018-09-30] MEDS: Nystatin 500,000 UNITS/5 ML UDCUP SSW SCH ×2 (08:13→14:36)
[2018-09-30] MEDS ORDERED: Morphine 4 MG/ML VIAL SLOW IVP PRN (09:56)
[2018-09-30] MEDS ORDERED: Lorazepam 2 MG/ML VIAL SLOW IVP PRN (09:56)
--- NOTE | 2018-09-30 11:14 | PRG ---
DATE OF SERVICE: 09/30/2018 SUBJECTIVE: This morning appears to have a significant respiratory distress. OBJECTIVE: VITAL SIGNS: Respiratory rate is about 40, sats are 95% on 50% Ventimask, temperature 98, pulse 120, blood pressure CHEST: Extensive rhonchi and crackles. CARDIAC: Normal S1, S2. No gallops. ABDOMEN: No masses. IMPRESSION: End-stage respiratory failure, congestive heart failure, aspiration pneumonia. PLAN: Family wants hospice care, which I agree. I will stop all medication. Comfort care. Job ID: [id number]
--- NOTE | 2018-09-30 11:55 | PDOC.PN ---
- Subjective Encounter Start Date: 09/30/18 Encounter Start Time: 11:54 Patient seen and examined, daughter at bedside, all questions answered. - Objective Resuscitation Status - Order Detail: 09/18/18 17:42 Resuscitation Status Routine Resuscitation Status: DNAR: NO Resuscitation Discussed with: Family and son Vital Signs & Weight: Vital Signs (12 hours) Temp Pulse Resp BP BP Pulse Ox 09/30/18 10:53 108 H 09/30/18 10:45 108 H 22 H 90 L 09/30/18 08:12 100 09/30/18 08:00 98.4 F 120 H 23 H 152/84 H 09/30/18 07:58 95 09/30/18 07:05 100 27 H 95 09/30/18 07:00 98 27 H 95 09/30/18 04:37 123 H 09/30/18 04:00 98.2 F 126 H 18 156/93 H 92 L 09/30/18 02:33 116 H 24 H Weight Admit Weight 138 lb 14.259 oz Weight 142 lb 4.8 oz I&O: 09/29/18 09/30/18 10/01/18 06:59 06:59 06:59 Intake Total 100 250 Output Total 200 875 Balance -100 -625 Result Diagrams: 09/29/18 04:10 09/29/18 04:10 Phys Exam - Physical Examination Constitutional: NAD HEENT: PERRLA, moist MMs, sclera anicteric Neck: no nodes, no JVD, supple coarse breath sounds tachycardia 2/6 CHRISTOPHER Gastrointestinal: soft, non-tender, no distention, positive bowel sounds Musculoskeletal: pulses present, edema present (trace) Dx/Plan (1) RONEL (acute kidney injury) Code(s): N17.9 - ACUTE KIDNEY FAILURE, UNSPECIFIED Status: Acute Comment: Avoid nephrotoxic meds and limit contrast exposure, serial creatinine, slow improvement but trending toward baseline, 1/2NS @ 50ml/h (2) Acute blood loss anemia Code(s): D62 - ACUTE POSTHEMORRHAGIC ANEMIA Status: Acute Comment: See above , serial CBC, trending down, bloody suctioning form O-P (3) Acute hypernatremia Code(s): E87.0 - HYPEROSMOLALITY AND HYPERNATREMIA Status: Acute Comment: Improved, encourage increased free-H2O intake (4) Atrial fibrillation with RVR Code(s): I48.91 - UNSPECIFIED ATRIAL FIBRILLATION Status: Acute Comment: Continue rate-control strategy, titrate Cardizem to clinical response, no anticoagulation due to GI bleed, recurrent anemia, continue Metoprolol 50mg BID , but not taking po at present (5) Alzheimer's dementia Code(s): G30.9 - ALZHEIMER'S DISEASE, UNSPECIFIED; F02.80 - DEMENTIA IN OTH DISEASES CLASSD ELSWHR W/O BEHAVRL DISTURB Status: Chronic Comment: Advanced dementia, will return to [facility] upon d/c (6) Physical deconditioning Code(s): R53.81 - OTHER MALAISE Status: Chronic Comment: PT for mobilization - Plan * pending hospice arrangements * long discussion held with daughter, she agrees with hospice care * DC to hospice once arrangements made * brother is NATHAN who arrives this afternoon, will await decision * case and plan d/w patient's daughter at length, she understood and agreed with this plan
[2018-09-30 12:54] VITALS: BP 138/83; TEMP 99.2
--- NOTE | 2018-09-30 13:38 | PDOC.EVN ---
Event Note - Event Note Event Note: DC SUMMARY #[id number]
--- NOTE | 2018-10-01 01:12 | DIS ---
DATE OF ADMISSION: 09/18/2018 DATE OF DISCHARGE: 09/30/2018 ADMITTING DIAGNOSES: 1. Altered mental status. 2. Atrial fibrillation with rapid ventricular response. 3. Gastrointestinal bleed. 4. Alzheimer's. 5. Deconditioning. 6. Hypothyroidism. 7. Hypertension. 8. Depression. 9. History of cerebrovascular accident. 10. Chronic kidney disease, stage 3. DISCHARGE DIAGNOSES: 1. Altered mental status. 2. Atrial fibrillation with rapid ventricular response. 3. Gastrointestinal bleed. 4. Alzheimer's. 5. Deconditioning. 6. Hypothyroidism. 7. Hypertension. 8. Depression. 9. History of cerebrovascular accident. 10. Chronic kidney disease, stage 3. HOSPITAL COURSE: This is an 88-year-old female admitted to the hospital with GI bleed and altered mental status, was seen by the Internal Medicine team, also followed very closely by Pulmonary, Cardiology, as well as Palliative Hospice Care and GI. The patient had an extensive workup done, was admitted and treated at optimal capabilities of the medical team; however, was found to have a decline in condition status. The patient was not responding well to medical treatment and not improving in her condition. The patient was found to be critical in condition and was due to start palliative care. Given the decline that she was having, the patient was transitioned to Palliative Care and the case was discussed with the patient's family at length. They understood and agreed with this plan, stating that they would agree with hospice inpatient hospice facility. DISPOSITION: Inpatient hospice facility. FOLLOWUP: Follow up with PCP in 1 to 2 weeks and Hospice Team within 1 week. MEDICATIONS: See MAR. CONDITION: Guarded. PROGNOSIS: Poor. ACTIVITY: As tolerated with assistance as needed. DIET: As tolerated. Case and plan discussed with the patient's daughter at length. She understood and agreed with this plan. Job ID: [id number]
[2018-10-01] MEDS ORDERED: Digoxin 0.125 MG TAB PO SCH (09:00)
--- NOTE | 2018-10-01 20:39 | EKG ---
Test Reason : Blood Pressure : / mmHG Vent. Rate : 121 BPM Atrial Rate : 163 BPM P-R Int : 000 ms QRS Dur : 084 ms QT Int : 326 ms P-R-T Axes : 000 044 049 degrees QTc Int : 462 ms Atrial fibrillation with rapid ventricular response Abnormal ECG Confirmed by LADONNA MANRIQUEZ MD ([id number]), index editor JUANA BROWN ([id number]) on 10/01/2018 8:39:11 PM Referred By: Confirmed By:LADONNA MANRIQUEZ MD
== END 2018-09-30 16:00 | disposition hospice, inpatient (51) | DRG 377 ==
LOC: ERS 09:57 → ERHOLD 12:22 → IMCU/EMU 17:10 → 2NO 09-23 16:01 → IMCU/EMU 09-28 15:35
PROVIDERS: ADMIT Family Medicine; ATTEND Family Medicine
PROC: 30233N1 Transfusion of Nonautologous Red Blood Cells into Peripheral Vein, Percutaneous Approach (ICD-10-PCS; principal; 2018-09-18)
PROC: 05HQ33Z Insertion of Infusion Device into Left External Jugular Vein, Percutaneous Approach (ICD-10-PCS; 2018-09-18)
PROC: 5A09357 Assistance with Respiratory Ventilation, Less than 24 Consecutive Hours, Continuous Positive Airway Pressure (ICD-10-PCS; 2018-09-29)
DX: K92.1 Melena (principal); G93.41 Metabolic encephalopathy; J96.90 Respiratory failure, unspecified, unspecified whether with hypoxia or hypercapnia; J69.0 Pneumonitis due to inhalation of food and vomit; D62 Acute posthemorrhagic anemia; N17.9 Acute kidney failure, unspecified; E87.0 Hyperosmolality and hypernatremia; I47.1 Supraventricular tachycardia; N39.0 Urinary tract infection, site not specified; B37.0 Candidal stomatitis; I13.0 Hypertensive heart and chronic kidney disease with heart failure and stage 1 through stage 4 chronic kidney disease, or unspecified chronic kidney disease; I50.42 Chronic combined systolic (congestive) and diastolic (congestive) heart failure; Z51.5 Encounter for palliative care; I48.2 Chronic atrial fibrillation; N18.3 Chronic kidney disease, stage 3 (moderate); E86.0 Dehydration; Z66 Do not resuscitate; G30.9 Alzheimer's disease, unspecified; D69.6 Thrombocytopenia, unspecified; I34.0 Nonrheumatic mitral (valve) insufficiency; F02.80 Dementia in other diseases classified elsewhere, unspecified severity, without behavioral disturbance, psychotic disturbance, mood disturbance, and anxiety; E87.8 Other disorders of electrolyte and fluid balance, not elsewhere classified; F32.9 Major depressive disorder, single episode, unspecified; M19.90 Unspecified osteoarthritis, unspecified site; E03.9 Hypothyroidism, unspecified; Z86.73 Personal history of transient ischemic attack (TIA), and cerebral infarction without residual deficits; Z99.3 Dependence on wheelchair; Z79.82 Long term (current) use of aspirin
CPT/HCPCS: 36415; 36416; 36430; 51701; 71045; 80048; 80053; 81003; 81015; 82274; 82550; 82553; 82728; 82805; 83540; 83550; 83605; 83735; 83880; 84439; 84443; 84484; 85007; 85025; 85027; 85046; 85060; 86850; 86900; 86901; 87040; 87086; 93005; 93010; 93306; 94640; 94660; 96361; 96374; 96375; 96376; A4353; C9113; G8996-GN-CL; G8997-GN-CI; J0131; J0692; J1160; J1940; J2060; J2916; J2920; J3490; J7050; J7620; J7626; P9016